=== PATIENT | male | born 1940 | race Caucasian/White ===

== ENCOUNTER 2016-06-03 15:41 | Inpatient (IN) | payer MEDICARE, MEDICAID ==
[~2016-06-03] VITALS: Ht 172.7 cm; Wt 82.7 kg
--- NOTE | 2016-06-03 16:01 | NUR ---
[facility] STAFF STATE PT IS FULL CODE & IS HIS OWN GUARDIAN. CL
--- NOTE | 2016-06-03 16:18 | NUR ---
PATIENT ATTEMPTING TO PROVIDE URINE SPECIMEN.
[2016-06-03 16:36] LABS: BASOPHILS % (AUTO) 0 % (0-2); EOSINOPHILS # (AUTO) 0.4 10^3uL; EOSINOPHILS % (AUTO) 7 % (0-4); LYMPHOCYTES # (AUTO) 1.3 X10^3; MEAN CORPUSCULAR HGB CONC 34.8 g/dL (31.0-37.0); MEAN CORPUSCULAR VOLUME 90 FL (80-100); MEAN PLATELET VOLUME 10.8 FL (6.0-9.5); MONOCYTES # (AUTO) 0.5 X10^3; MONOCYTES % (AUTO) 9 % (3-11); NEUTROPHILS # (AUTO) 3.6 X10^3; NEUTROPHILS % (AUTO) 62 % (51-67); PLATELET COUNT 231 10^3uL (150-450); WHITE BLOOD COUNT 5.79 10^3uL (4.0-11.0)
[2016-06-03 16:49] LABS: MEAN CORPUSCULAR HEMOGLOBIN 31.3 PG (26.0-34.0)
[2016-06-03 16:59] LABS: ALBUMIN 4.1 g/dL (3.4-5.0); ALKALINE PHOSPHATASE 144 U/L (38-126); ANION GAP 12.4 MEQ/L (3-15); BUN/CREATININE RATIO 34 (10-20); CALCULATED IONIZED CALCIUM 4.2 mg/dL (3.8-4.6); CREATINE KINASE 55 U/L (55-170); TOTAL PROTEIN 6.7 g/dL (6.4-8.5)
[2016-06-03 17:16] LABS: BILIRUBIN,URINE Negative (Negative); CLARITY,URINE Clear; COLOR,URINE Yellow; GLUCOSE, URINE (UA) Negative (Negative); LEUKOCYTE ESTERASE ,URINE Negative (Negative); PH,URINE 5.5 (5.0 - 8.0); UROBILINOGEN,URINE 0.2 mg/dL (0.2-1.0)
--- NOTE | 2016-06-03 17:42 | Diagnostic Imaging Report ---
INDICATION: Cough, hypoxia. COMPARISON: None available. FINDINGS: Patchy opacities in the left lower lobe are present. There are also linear opacities in both lung bases. No pleural effusion or pneumothorax. Normal heart size. Normal mediastinal contours. Atherosclerosis of the aorta. IMPRESSION: Nodular opacity in the left lung base may relate to infectious process in the appropriate setting. Recommend followup PA and lateral chest radiographs in four weeks after appropriate medical management to ensure resolution and exclude neoplastic process. Dictated by: Dictated on workstation # [id number]
[2016-06-03] MEDS ORDERED: cefTRIAXone SODIUM 1,000 MG in SODIUM CHLORIDE 50 ML IV ONE (18:00)
[2016-06-03] MEDS ORDERED: SODIUM CHLORIDE FLUSH 10 ML SYR IV PRN (18:10)
[2016-06-03] MEDS: SODIUM CHLORIDE FLUSH 3 ML SYR IV PRN ×2 (18:59→19:15)
--- NOTE | 2016-06-03 19:12 | NUR ---
Sent text to Med-Surg Charge 1 requesting they call ED for pt rpt.
[2016-06-03] MEDS ORDERED: ACETAMINOPHEN 325 MG TAB (TYLENOL) PO PRN (19:45)
[2016-06-03] MEDS ORDERED: MAGNESIUM HYDROXIDE 80MG/ML (MILK OF MAGNESIA) 30 ML UDC PO PRN (19:45)
[2016-06-03] MEDS ORDERED: POLYETHYLENE GLYCOL 17 GM (MIRALAX) PACKET PO PRN (19:45)
[2016-06-03] MEDS ORDERED: DOCUSATE SODIUM 100 MG (COLACE) CAP PO PRN (19:45)
[2016-06-03] MEDS ORDERED: MAG HYDROX/AL HYDROX/SIMETH 200-200-20/5 ML (MAG-AL PLUS) 30 ML UDC PO PRN (19:45)
[2016-06-03] MEDS ORDERED: ALBUTEROL 0.083% NEB SOLUTION 2.5 MG/3 ML VIAL INH PRN ×2 (19:45→20:55)
[2016-06-03] MEDS ORDERED: CALCIUM CARBONATE CHEWABLE 300 MG (TUMS) TABLET PO PRN (19:45)
--- NOTE | 2016-06-03 20:00 | NUR ---
Pt admitted to room 311. Brought from ER by staff and a cart. [facility] staff at his bedside.
[2016-06-03] MEDS ORDERED: SODIUM CHLORIDE 250 ML ONE (20:09)
[2016-06-03] MEDS ORDERED: AZITHROMYCIN 500 MG (ZITHROMAX) VIAL IV ONE (20:09)
[2016-06-03] MEDS: AZITHROMYCIN VIAL 500 MG in SODIUM CHLORIDE 250 ML IV SCH (20:22)
[2016-06-03] MEDS: guaiFENesin ER 600 MG (MUCINEX) TAB PO SCH (20:23)
[2016-06-03] MEDS ORDERED: DEXTROMETHORPHAN 15 MG/10 ML UDC PO PRN (20:55)
[2016-06-03] MEDS ORDERED: guaiFENesin ER 600 MG (MUCINEX) TAB PO SCH (21:00)
--- NOTE | 2016-06-03 21:03 | History and Physical (E) ---
History & Physical PCP: Mike Velazco MD CC: Dyspnea HPI Devin Lozada is a 75 year old male admitted from ED where he presented from home ([facility]) via EMS after he had been seen at [facility] for pallor and trouble breathing while lying flat. He has reportedly had cough for two weeks. No reported fever. In ED, BP was quite elevated. Afebrile. HR 60-90, RR 17-24. SpO2 low 90's on 2 L. CXR showed nodular opacity, left base, infectious vs. other etiology. Resp PCR panel was negative. WB was normal with no bandemia. Chemistry showed AlkP 144, CO2 33, and was otherwise as noted below. Pro-BNP not elevated at 277. Troponin normal. TSH normal. UA not suggestive of UTI. For clinical concern of pneumonia he was given ceftriaxone and admission was requested for further management. On arrival to unit, awake, alert, interactive, oriented. Good cognition and he can relate history. [facility] staff member is also present. States onset of illness was 2-3 weeks ago with cough. Mild at first but got worse. Coughing constantly. Interrupted his sleep. Notified his staff he wanted to see a doctor. Eventually went to [facility] but then was sent to ED. He has had coughing before but this is the longest it has lasted for a while. Cough is not productive. No fever. No chills. No rash. Minimal URI symptoms. No GI complaints. Has felt some wheezing. No chest pains. No dizziness or syncopal symptoms. [facility] staff have noticed he is more pale. PMH * Falls at home * COPD * Asthma * Arthritis * Nocturia * Mild intellectual developmental disability * [place] * Seizure disorder * BPH * Anxiety * Peripheral neuropathy * Pedal edema * GERD PSH * Ingrown toenail, right great toe ALLERGIES: Please see list at end of report. HOME MEDICATIONS: Please see list at end of report. FH Mom of natural causes at 99. Father at 85 of natural causes. 1 sister of cancer, unknown kind. But she was adoptive. Another biological sister lives in [place]. [facility] client. He is his own guardian. Single, no children. No smoking, alcohol, or drug use. Retired from [employer]. ROS CONSTITUTION: Weight has been stable. Poor sleep because of cough. HEENT: No change in vision or hearing. No sores in mouth, sore throat. CV: No chest pain, palpitations. PULM: Per HPI, exam. GI: No upset stomach, nausea, vomiting, constipation, or diarrhea. No blood in stool. : No dysuria. Nocturia at times. MS: No new muscle or joint aches and pains. NEURO: No numbness or tingling. No weakness. INTEG: No rashes, lesions, or sores. ENDO: No heat or cold intolerance. No polydipsia or polyuria. HEME/LYMPH: No easy bruising or bleeding. No swollen glands. PSYCH: No change in mood or behavior. OBJECTIVE Vital Signs Date Time Temp Pulse Resp B/P Pulse Ox O2 Delivery O2 Flow Rate FiO2 06/03/16 18:26 66 17 191/76 93 Room Air 1 06/03/16 15:42 98.9 GEN: Awake, alert, oriented, NAD at present. HEENT: EOMI, PERRL, dry oral mucosa. CV: RRR S1 S2 normal with no murmur LUNGS: Diminished with no R/R/W. Mildly prolonged expiratory phase. ABD: Soft, NT/ND with normal bowel sounds. EXTR: 1+ pedal edema. INTEG: No rash. Age related changes. Dry skin. NEURO: No focal motor neuro deficit. Laboratory Results-14 Days 06/03/16 16:20: Urine Bilirubin Negative, Urine Clarity Clear, Urine Collection Type Random voided, Urine Color Yellow, Urine Glucose (UA) Negative, Urine Ketones Negative , Urine Leukocyte Esterase Negative, Urine Nitrite Negative, Urine Protein Negative, Urine RBC (Auto) Negative, Urine Specific [place] 1.020, Urine Urobilinogen 0.2, Urine pH 5.5 06/03/16 16:25: Adenovirus (PCR) Negative, Alanine Aminotransferase (ALT/SGPT) 35, Albumin 4.1, Albumin/Globulin Ratio 1.576, Alkaline Phosphatase 144H, Anion Gap 12.4, Aspartate Amino Transf (AST/SGOT) 31, BUN/Creatinine Ratio 34H, Basophils # ( Auto) 0.0, Basophils (%) (Auto) 0, Blood Urea Nitrogen 23H, Bordetella parapertussis DNA (PCR) Negative, C-Reactive Protein 0.90, Calcium Level 9.2, Calcium/Ionized Calcium Ratio 4.2, Calculated Osmolality 277L, Carbon Dioxide Level 33H, Chlamydophila pneumoniae (PCR) Negative, Chloride Level 101, Coronavirus Type 229E (PCR) Negative, Coronavirus Type HKU1 (PCR) Negative, Coronavirus Type NL63 (PCR) Negative, Coronavirus Type OC43 (PCR) Negative, Creatine Kinase MB 1.6, Creatinine 0.67L, D-Dimer 494, Enterovirus/Rhinovirus ( PCR) Negative, Eosinophils # (Auto) 0.4, Eosinophils (%) (Auto) 7H, Estimat Glomerular Filtration Rate 140.3, Estimated GFR (Non- 116.0, Glucose Level 94#, Hematocrit 42.80, Hemoglobin 14.9, Human Metapneumovirus (PCR ) Negative, Influenza Type A (H1) (PCR) Negative, Influenza Virus Type B (PCR) Negative, Lymphocytes # (Auto) 1.3, Lymphocytes (%) (Auto) 22, Mean Corpuscular Hemoglobin 31.3, Mean Corpuscular Hemoglobin Concent 34.8, Mean Corpuscular Volume 90, Mean Platelet Volume 10.8H, Monocytes # (Auto) 0.5, Monocytes (%) ( Auto) 9, Mycoplasma pneumoniae (PCR) Negative, IH-Vhy-G-Type Natriuretic Peptide 277H, Neutrophils # (Auto) 3.6, Neutrophils (%) (Auto) 62, Parainfluenza Type 1 (PCR) Negative, Parainfluenza Type 2 (PCR) Negative, Parainfluenza Type 3 (PCR) Negative, Parainfluenza Type 4 (PCR) Negative, Phenytoin (Dilantin) Level 10.8, Platelet Count 231, Potassium Level 4.1, Prothromb Time International Ratio 1.0, Prothrombin Time 11.4, Red Blood Count 4.76, Red Cell Distribution Width 12.8, Respiratory Syncytial Virus (PCR) Negative, Sodium Level 142, Thyroid Stimulating Hormone (TSH) 0.71, Total Bilirubin 0.5, Total Creatine Kinase 55, Total Protein 6.7, Troponin I < 0.012, White Blood Count 5.79 06/03/16 18:25: Lactic Acid Level 0.9 MICRO 06/03 Resp PCR Panel Negative 06/03 Blood culture PENDING (not drawn before first abx.) 06/03 Sputum culture PENDING SAMPLE IMAGING 06/03/16 CHEST PA/LAT (2 VIEW)* INDICATION: Cough, hypoxia. COMPARISON: None available. FINDINGS: Patchy opacities in the left lower lobe are present. There are also linear opacities in both lung bases. No pleural effusion or pneumothorax. Normal heart size. Normal mediastinal contours. Atherosclerosis of the aorta. IMPRESSION: Nodular opacity in the left lung base may relate to infectious process in the appropriate setting. Recommend followup PA and lateral chest radiographs in four weeks after appropriate medical management to ensure resolution and exclude neoplastic process. ASSESSMENT Devin Lozada is a 75 year old male admitted from ED 06/03 with acute respiratory distress attributed to community acquired pneumonia, viral vs. bacterial. He has several chronic problems. He did not meet sepsis criteria on PLAN * Acute Respiratory Distress: Oxygen protocol. Acapella. Albuterol PRN * Community Acquired Pneumonia: Blood culture pending. Sputum pending sample. Guaifenesin, ceftriaxone, azithromycin. * COPD/Asthma with Acute Exacerbation: Duoneb scheduled, albuterol PRN. Guaifenesin. Prednisone burst. * Cough: dextromethorphan * Dehydration: NS bolus. Encourage PO fluid intake. I&O. * F/E/N: General diet. Peripheral IV. IVF as above. * Prophylaxis: SCDs * Code Status: Full * Dispo: Inpatient expecting 3 day stay. CHRONIC ISSUES Home medications to be reviewed. Some polypharmacy noted on home medication list. * Seasonal allergies: resume fexofenadine after discharge. * Arthritis: Celecoxib, glucosamine/chondroitin * Seizure Disorder: Clonazepam * Anxiety? Clonazepam, phenytoin, olanzapine. * BPH: Tamsulosin * Pedal Edema DAIANA hose. * Peripheral neuropathy: Gabapentin Allergies/Home Medications Allergies: Coded Allergies: Penicillins (Verified Allergy, Unknown, 06/03/16) Copies to: End of Report . ELIZABETH FELDER MD Jun 03, 2016 19:53
[2016-06-03] MEDS: ALBUTEROL/IPRATROPIUM 3MG-0.5MG/3ML (DUONEB) NEB VIAL INH SCH (22:00)
[2016-06-03] MEDS: PHENYTOIN ER 100 MG (DILANTIN) CAPSULE PO SCH (22:17)
[2016-06-03] MEDS: GABAPENTIN 100 MG (NEURONTIN) CAP PO SCH (22:17)
[2016-06-03] MEDS: clonazePAM 0.5 MG (KlonoPIN) TAB PO SCH (22:17)
[2016-06-03] MEDS: predniSONE 20 MG (DELTASONE) TABLET PO SCH (22:17)
[2016-06-03] MEDS: CELECOXIB 200 MG PO SCH (22:17)
[2016-06-03] MEDS: OLANZapine 5 MG (ZyPREXA) TAB PO SCH (22:17)
[2016-06-03] MEDS: GLUCOSAMINE/CHONDROITIN 500MG-400MG CAPSULE PO SCH (22:18)
[2016-06-04] VITALS: BP 152/78
[2016-06-04 06:00] LABS: MEAN CORPUSCULAR HGB CONC 34.8 g/dL (31.0-37.0); MEAN CORPUSCULAR VOLUME 90 FL (80-100); MEAN PLATELET VOLUME 11.3 FL (6.0-9.5); PLATELET COUNT 219 10^3uL (150-450); WHITE BLOOD COUNT 6.54 10^3uL (4.0-11.0)
[2016-06-04 06:22] LABS: ALBUMIN 3.9 g/dL (3.4-5.0); ANION GAP 13.8 MEQ/L (3-15); PHOSPHORUS 3.8 mg/dL (2.4-4.9)
[2016-06-04 06:24] LABS: MEAN CORPUSCULAR HEMOGLOBIN 31.3 PG (26.0-34.0)
[2016-06-04 06:26] LABS: BAND NEUTROPHILS % 1 % (0-6); EOSINOPHILS % 1 % (0-4); LYMPHOCYTES # 0.5 #; MONOCYTES # 0.1 #; MONOCYTES % 1 % (3-11); RBC MORPH NORMAL (NORMAL); SEGMENTED NEUTROPHILS % 90 % (51-67); TOTAL CELLS COUNTED 100
[2016-06-04] MEDS: PANTOPRAZOLE 40 MG (PROTONIX) TAB PO SCH (06:57)
[2016-06-04 08:03] VITALS: BP 156/88
[2016-06-04] MEDS: GLUCOSAMINE/CHONDROITIN 500MG-400MG CAPSULE PO SCH ×2 (09:00→20:51)
--- NOTE | 2016-06-04 09:00 | NUR ---
Pt sitting up in bed. Skin warm, dry, intact. Resprs nonlabored, even on 2L NC. Pt denies pain or SOA at this time. Call light within reach. Denies needs.
[2016-06-04] MEDS ORDERED: FLUT9.9S NS (09:29)
[2016-06-04] MEDS ORDERED: CLON0.5T3 PO (09:29)
[2016-06-04] MEDS ORDERED: GLUC-113 PO (09:29)
[2016-06-04] MEDS ORDERED: TAMS-8 PO (09:29)
[2016-06-04] MEDS ORDERED: PHN100C PO (09:29)
[2016-06-04] MEDS ORDERED: OMEP20TA PO (09:29)
[2016-06-04] MEDS ORDERED: KCL20TCR PO (09:29)
[2016-06-04] MEDS ORDERED: HYDR-3702 PO (09:29)
[2016-06-04] MEDS ORDERED: MULT1TAB63 PO (09:29)
[2016-06-04] MEDS ORDERED: FURO20TA4 PO (09:29)
[2016-06-04] MEDS ORDERED: CELE-63 PO (09:29)
[2016-06-04] MEDS ORDERED: GBPN100C PO (09:29)
[2016-06-04] MEDS ORDERED: SERT50TA9 PO (09:29)
[2016-06-04] MEDS ORDERED: OLN5T PO (09:29)
[2016-06-04] MEDS ORDERED: NAPR375T71 PO (09:29)
[2016-06-04] MEDS ORDERED: FNST5T PO (09:29)
[2016-06-04] MEDS ORDERED: FEXO-95 PO (09:29)
[2016-06-04] MEDS ORDERED: [UNRECOGNIZED DRUG - CODE] PO (09:29)
[2016-06-04] MEDS ORDERED: DICL100G13 TOP (09:29)
[2016-06-04] MEDS ORDERED: ACET325T38 PO (09:29)
[2016-06-04] MEDS: clonazePAM 0.5 MG (KlonoPIN) TAB PO SCH ×2 (09:39→20:52)
[2016-06-04] MEDS: guaiFENesin ER 600 MG (MUCINEX) TAB PO SCH ×2 (09:39→20:52)
[2016-06-04] MEDS: CELECOXIB 200 MG PO SCH ×2 (09:40→20:52)
[2016-06-04] MEDS: predniSONE 20 MG (DELTASONE) TABLET PO SCH (09:40)
[2016-06-04] MEDS: PHENYTOIN ER 100 MG (DILANTIN) CAPSULE PO SCH ×2 (09:40→20:52)
[2016-06-04] MEDS: ALBUTEROL/IPRATROPIUM 3MG-0.5MG/3ML (DUONEB) NEB VIAL INH SCH ×4 (09:48→21:43)
--- NOTE | 2016-06-04 11:10 | NUR ---
Medication reconciliation: Completed [facility] medical [facility].
--- NOTE | 2016-06-04 13:44 | Progress Note-A/P (E) ---
Progress Note Subjective: Patient reports he is feeling well and is asking about going home. He states he is not typically on oxygen at home, Discussed the need to wean him from oxygen prior to discharge. Patient verbalized understanding of the discharge plan. Questions answered. Objective: Current Medications Albuterol Sulfate 2.5 mg Q4H PRN INH Ceftriaxone Q24H IV Azithromycin Q24H IV Guaifenesin 1,200 mg BID PO Acetaminophen 650 mg Q6H PRN PO Calcium Carbonate 300 mg Q8H PRN PO Al Hydrox/Mg Hydrox/Simethicone 30 ml Q6H PRN PO Magnesium Hydroxide 30 ml DAILY PRN PO Polyethylene Glycol 17 gm DAILY PRN PO Docusate 100 mg BID PRN PO Celecoxib 200 mg BID PO Clonazepam 0.5 mg BID PO Gabapentin 100 mg HS PO Glucosamine/ Chondroitin 1 each BID PO Pantoprazole 40 mg DAILY@0700 PO Phenytoin 100 mg Q12HR PO Olanzapine 5 mg HS PO Albuterol/ Ipratropium 3 ml RTQID INH Dextromethorphan 15 mg Q4H PRN PO Prednisone 40 mg DAILY@0800 PO Vital Signs Date Time Temp Pulse Resp B/P Pulse Ox O2 Delivery O2 Flow Rate FiO2 06/04/16 08:03 97.0 78 18 156/88 94 Nasal cannula 06/03/16 19:43 1 I & O Past 24 hrs 06/04/16 07:00 Intake Total 1450 ml Output Total 850 ml Balance 600 ml Intake Oral 250 ml IV Total 1200 ml Output Urine Total 850 ml Physical Exam General--Awake and alert. No distress. Pale. HEENT--Normocephalic. MMM in oral cavity. Nasal cannula in place. Lungs--Wheezing noted on the left side. Nonlabored respirations. Heart--RRR. No murmurs. Abdomen--Normal bowel sounds. Soft. Nondistended. Nontender. Extremities--No edema. Past 24 hour Lab Results 06/03/16 16:25 06/04/16 05:34 Laboratory Results Past 24 Hrs 06/03/16 16:20: Urine Bilirubin Negative, Urine Clarity Clear, Urine Collection Type Random voided, Urine Color Yellow, Urine Glucose (UA) Negative, Urine Ketones Negative , Urine Leukocyte Esterase Negative, Urine Nitrite Negative, Urine Protein Negative, Urine RBC (Auto) Negative, Urine Specific [place] 1.020, Urine Urobilinogen 0.2, Urine pH 5.5 06/03/16 16:25: Adenovirus (PCR) Negative, Alanine Aminotransferase (ALT/SGPT) 35, Albumin 4.1, Albumin/Globulin Ratio 1.576, Alkaline Phosphatase 144, Anion Gap 12.4, Aspartate Amino Transf (AST/SGOT) 31, BUN/Creatinine Ratio 34, Basophils # (Auto ) 0.0, Basophils (%) (Auto) 0, Blood Urea Nitrogen 23, Bordetella parapertussis DNA (PCR) Negative, C-Reactive Protein 0.90, Calcium Level 9.2, Calcium/Ionized Calcium Ratio 4.2, Calculated Osmolality 277, Carbon Dioxide Level 33, Chlamydophila pneumoniae (PCR) Negative, Chloride Level 101, Coronavirus Type 229E (PCR) Negative, Coronavirus Type HKU1 (PCR) Negative, Coronavirus Type NL63 (PCR) Negative, Coronavirus Type OC43 (PCR) Negative, Creatine Kinase MB 1.6, Creatinine 0.67, D-Dimer 494, Enterovirus/Rhinovirus (PCR) Negative, Eosinophils # (Auto) 0.4, Eosinophils (%) (Auto) 7, Estimat Glomerular Filtration Rate 140.3, Estimated GFR (Non- 116.0, Glucose Level 94, Hematocrit 42.80, Hemoglobin 14.9, Human Metapneumovirus (PCR) Negative, Influenza Type A (H1) (PCR) Negative, Influenza Virus Type B (PCR) Negative, Lymphocytes # (Auto) 1.3, Lymphocytes (%) (Auto) 22, Mean Corpuscular Hemoglobin 31.3, Mean Corpuscular Hemoglobin Concent 34.8, Mean Corpuscular Volume 90, Mean Platelet Volume 10.8, Monocytes # (Auto) 0.5, Monocytes (%) ( Auto) 9, Mycoplasma pneumoniae (PCR) Negative, IX-Mgy-N-Type Natriuretic Peptide 277, Neutrophils # (Auto) 3.6, Neutrophils (%) (Auto) 62, Parainfluenza Type 1 (PCR) Negative, Parainfluenza Type 2 (PCR) Negative, Parainfluenza Type 3 (PCR) Negative, Parainfluenza Type 4 (PCR) Negative, Phenytoin (Dilantin) Level 10.8, Platelet Count 231, Potassium Level 4.1, Prothromb Time International Ratio 1.0, Prothrombin Time 11.4, Red Blood Count 4.76, Red Cell Distribution Width 12.8, Respiratory Syncytial Virus (PCR) Negative, Sodium Level 142, Thyroid Stimulating Hormone (TSH) 0.71, Total Bilirubin 0.5, Total Creatine Kinase 55, Total Protein 6.7, Troponin I < 0.012, White Blood Count 5.79 06/03/16 18:25: Lactic Acid Level 0.9 06/04/16 05:34: Albumin 3.9, Anion Gap 13.8, Basophils # (Auto) , Basophils (%) (Auto) , Blood Urea Nitrogen 25, Calcium Level 9.0, Carbon Dioxide Level 29, Chloride Level 105 , Creatinine 0.69, Eosinophils # (Auto) , Eosinophils (%) (Auto) , Estimat Glomerular Filtration Rate 135.6, Estimated GFR (Non- 112.1, Glucose Level 125, Hematocrit 40.80, Hemoglobin 14.2, Lymphocytes # (Auto) , Lymphocytes (%) (Auto) , Mean Corpuscular Hemoglobin 31.3, Mean Corpuscular Hemoglobin Concent 34.8, Mean Corpuscular Volume 90, Mean Platelet Volume 11.3, Monocytes # (Auto) , Monocytes (%) (Auto) , Neutrophils # (Auto) , Neutrophils ( %) (Auto) , Platelet Count 219, Potassium Level 4.1, Red Blood Count 4.53, Red Cell Distribution Width 12.7, Sodium Level 144, White Blood Count 6.54, Absolute Band Neutrophils 0.1, Band Neutrophils % 1, Basophils # (Manual) 0.0, Basophils % (Manual) 0, Blood Morphology Comment Normal, Differential Total Cells Counted 100, Eosinophils # 0.1, Eosinophils % (Manual) 1, Lymphocytes # 0.5, Lymphocytes % (Manual) 7, Monocytes # 0.1, Monocytes % (Manual) 1, Neutrophils # 5.9, Phosphorus Level 3.8, Segmented Neutrophils % 90 Imaging Results 12.30.16 CXR IMPRESSION: Nodular opacity in the left lung base may relate to infectious process in the appropriate setting. Recommend followup PA and lateral chest radiographs in four weeks after appropriate medical management to ensure resolution and exclude neoplastic process. Assessment/Plan Acute respiratory distress Continue oxygen per protocol, acapella, and treatment noted below. CAP Blood culture pending. Sputum culture pending. Continue guaifenesin, ceftriaxone, azithromycin, and albuterol (prn). COPD/asthma exacerbation Continue prn albuterol, scheduled duoneb prednisone burst and guaifenesin. Seasonal allergies Resume fexofenadine on discharge. Arthritis Continue home celecoxib and glucosamine/chondroitin. Seizure disorder Continue phenytoin and clonazepam per home dose. Anxiety Clonazepam and olanzapine per home dose. BPH Continue home tamsulosin. Pedal edema Continue DAIANA hose. Peripheral neuropathy Continue home gabapentin. FEN General diet as tolerated. Electrolytes normal at this time. NS bolus provided on admission. DVT proph SCD's. Code status Full code. Dispo Inpatient for above issues. Continue to wean oxygen. Patient will return to [facility]. KARLOS GARNER MD Jun 04, 2016 13:43
[2016-06-04 15:24] VITALS: BP 110/64
[2016-06-04] MEDS ORDERED: SODIUM CHLORIDE 100 ML ONE (17:54)
[2016-06-04] MEDS: cefTRIAXone SODIUM 1,000 MG in SODIUM CHLORIDE 50 ML IV SCH (17:59)
[2016-06-04] MEDS: AZITHROMYCIN VIAL 500 MG in SODIUM CHLORIDE 250 ML IV SCH ×2 (18:46→18:59)
--- NOTE | 2016-06-04 19:36 | NUR ---
Pt sitting up in chair. Skin warm, dry, intact. Resprs nonlabored, even on 2L NC. Pt denies pain or SOA at this time. Call light within reach. Denies needs.
[2016-06-04] MEDS: OLANZapine 5 MG (ZyPREXA) TAB PO SCH (20:52)
[2016-06-04] MEDS: GABAPENTIN 100 MG (NEURONTIN) CAP PO SCH (20:52)
[2016-06-04 23:37] VITALS: BP 131/72
[2016-06-05] MEDS: PANTOPRAZOLE 40 MG (PROTONIX) TAB PO SCH (06:22)
--- NOTE | 2016-06-05 06:52 | NUR ---
Patient rests in bed throughout night without needs. Up to bathroom with one assist. No needs at this time.
[2016-06-05] MEDS: ALBUTEROL/IPRATROPIUM 3MG-0.5MG/3ML (DUONEB) NEB VIAL INH SCH ×4 (07:59→19:25)
[2016-06-05 08:25] VITALS: BP 151/87
--- NOTE | 2016-06-05 08:41 | Progress Note-A/P (E) ---
Progress Note Subjective: Patient reports feeling well. Denies n/v/d. No new concerns. He states he would like to go home. Discussed care and discharge plans. Questions answered. Objective: Current Medications Albuterol Sulfate 2.5 mg Q4H PRN INH Ceftriaxone Q24H IV Azithromycin Q24H IV Guaifenesin 1,200 mg BID PO Acetaminophen 650 mg Q6H PRN PO Calcium Carbonate 300 mg Q8H PRN PO Al Hydrox/Mg Hydrox/Simethicone 30 ml Q6H PRN PO Magnesium Hydroxide 30 ml DAILY PRN PO Polyethylene Glycol 17 gm DAILY PRN PO Docusate 100 mg BID PRN PO Celecoxib 200 mg BID PO Clonazepam 0.5 mg BID PO Gabapentin 100 mg HS PO Glucosamine/ Chondroitin 1 each BID PO Pantoprazole 40 mg DAILY@0700 PO Phenytoin 100 mg Q12HR PO Olanzapine 5 mg HS PO Albuterol/ Ipratropium 3 ml RTQID INH Dextromethorphan 15 mg Q4H PRN PO Prednisone 40 mg DAILY@0800 PO Vital Signs Date Time Temp Pulse Resp B/P Pulse Ox O2 Delivery O2 Flow Rate FiO2 06/05/16 08:25 97.4 97 18 151/87 90 Nasal cannula 06/03/16 19:43 1 I & O Past 24 hrs 06/05/16 07:00 Intake Total 2791 ml Output Total 2050 ml Balance 741 ml Intake Oral 2791 ml Output Urine Total 2050 ml Physical Exam General--Awake and alert. No distress. Pale. HEENT--Normocephalic. MMM in oral cavity. Nasal cannula in place. Lungs--CTA B. Nonlabored respirations. Heart--RRR. No murmurs. Abdomen--Bowel sounds present. Soft. Nondistended. Nontender. Extremities--Mild edema to lower extremities. Past 24 hour Lab Results Microbiology 06/03/16 Blood Culture - Preliminary, Resulted No Growth in 24 hours x 2 Imaging Results 06.03.16 CXR IMPRESSION: Nodular opacity in the left lung base may relate to infectious process in the appropriate setting. Recommend followup PA and lateral chest radiographs in four weeks after appropriate medical management to ensure resolution and exclude neoplastic process. Assessment/Plan Acute hypoxic respiratory failure Improving. Continue to wean oxygen per protocol, acapella, and treatment noted below. CAP Blood culture pending. Sputum culture pending. Continue guaifenesin, ceftriaxone, azithromycin, and albuterol (prn). COPD/asthma exacerbation Continue prn albuterol, scheduled duoneb prednisone burst and guaifenesin. Seasonal allergies Resume fexofenadine on discharge. Arthritis Continue home celecoxib and glucosamine/chondroitin. Seizure disorder Continue phenytoin and clonazepam per home dose. Anxiety Sertraline, clonazepam and olanzapine per home dose. BPH Continue home tamsulosin. Patient is also on finasteride at home, however not administering her, questioning if patient needs this. Pedal edema Continue DAIANA hose. Peripheral neuropathy Continue home gabapentin. FEN General diet as tolerated. Electrolytes normal at this time. NS bolus provided on admission. DVT proph SCD's. Code status Full code. Dispo Inpatient for above issues. Continue to wean oxygen. Patient will return to [facility] when back on room air. KARLOS GARNER MD Jun 05, 2016 08:41
[2016-06-05] MEDS: guaiFENesin ER 600 MG (MUCINEX) TAB PO SCH ×2 (09:16→21:07)
[2016-06-05] MEDS: predniSONE 20 MG (DELTASONE) TABLET PO SCH (09:16)
[2016-06-05] MEDS: PHENYTOIN ER 100 MG (DILANTIN) CAPSULE PO SCH ×2 (09:16→21:07)
[2016-06-05] MEDS: clonazePAM 0.5 MG (KlonoPIN) TAB PO SCH ×2 (09:16→21:07)
[2016-06-05] MEDS: CELECOXIB 200 MG PO SCH ×2 (09:16→21:07)
[2016-06-05] MEDS: GLUCOSAMINE/CHONDROITIN 500MG-400MG CAPSULE PO SCH ×2 (09:16→21:07)
[2016-06-05] MEDS ORDERED: SODIUM CHLORIDE FLUSH 10 ML SYR IV SCH (11:30)
[2016-06-05 16:19] VITALS: BP 150/74
[2016-06-05] MEDS: cefTRIAXone SODIUM 1,000 MG in SODIUM CHLORIDE 50 ML IV SCH (16:53)
[2016-06-05] MEDS ORDERED: SODIUM CHLORIDE 100 ML ONE (17:00)
[2016-06-05] MEDS: AZITHROMYCIN VIAL 500 MG in SODIUM CHLORIDE 250 ML IV SCH (17:38)
[2016-06-05] MEDS ORDERED: SERTRALINE 50 MG (ZOLOFT) TABLET PO SCH (18:05)
--- NOTE | 2016-06-05 18:50 | NUR ---
Restarted the patient's IV site in the left hand. The site that was in the right forearm was DC'd due to redness and pain.
--- NOTE | 2016-06-05 19:15 | NUR ---
Report received, care assumed. Pt sitting up in chair watching television. Denies needs.
--- NOTE | 2016-06-05 19:44 | NUR ---
The patient has been weaned to 1 liter NC. He has denied pain throughout the shift. Sat. remains in the 90's. No increased SOA since O2 was weaned. Able to take meds. whole without difficulty.
[2016-06-05] MEDS ORDERED: TAMSULOSIN 0.4 MG (FLOMAX) CAP PO SCH (21:00)
[2016-06-05] MEDS: OLANZapine 5 MG (ZyPREXA) TAB PO SCH (21:07)
[2016-06-05] MEDS: GABAPENTIN 100 MG (NEURONTIN) CAP PO SCH (21:08)
--- NOTE | 2016-06-05 21:10 | NUR ---
Pt took evening meds without difficulty. Continues to sit up watching television. Pt very congenial and cooperative with staff. Denies discomfort. Denies other needs. Call light in reach.
[2016-06-05 23:40] VITALS: BP 150/61
--- NOTE | 2016-06-06 06:15 | NUR ---
Pt took AM med without difficulty. Reports sleeping well tonight. Pt sitting up in chair watching television. Denies discomfort. No other needs at this time. Call light in reach.
[2016-06-06] MEDS: PANTOPRAZOLE 40 MG (PROTONIX) TAB PO SCH (06:16)
[2016-06-06] MEDS: ALBUTEROL/IPRATROPIUM 3MG-0.5MG/3ML (DUONEB) NEB VIAL INH SCH ×3 (07:39→15:24)
[2016-06-06] MEDS: PHENYTOIN ER 100 MG (DILANTIN) CAPSULE PO SCH (08:53)
[2016-06-06] MEDS: GLUCOSAMINE/CHONDROITIN 500MG-400MG CAPSULE PO SCH (08:54)
[2016-06-06] MEDS: guaiFENesin ER 600 MG (MUCINEX) TAB PO SCH (08:54)
[2016-06-06] MEDS: clonazePAM 0.5 MG (KlonoPIN) TAB PO SCH (08:55)
[2016-06-06] MEDS: predniSONE 20 MG (DELTASONE) TABLET PO SCH (08:55)
[2016-06-06] MEDS: CELECOXIB 200 MG PO SCH (08:55)
[2016-06-06 09:19] VITALS: BP 139/75
--- NOTE | 2016-06-06 09:58 | NUR ---
NUTRITION ASSESSMENT Level 1 Patient: Devin Lozada Age/Sex: 75/M Date Screened: 06-06-16 Weight: 181.9#/82.7 kg Height: 68 inches Primary Diagnosis: acute respiratory distress, pneumonia Diet Order: regular Relevant labs: glucose 125 Food allergies: N Nutrition Assessment Criteria Age over 80: N Body Mass Index (BMI) under 19: N Admission Screening Indicates Risk? N Moderate/High Risk Diagnosis: 3 points TPN or PPN: N NPO or clear liquid diet: N Serum Glucose <70 or >180: N Hgb A1c >6.7: N/A Total: 3 points Risk Screen: __ Patient at low nutritional risk based on available data; reevaluate in 5-7 days _X_ Patient at moderate nutritional risk based on available data; reevaluate in 3-5 days __ Patient at high nutritional risk; complete Nutrition Assessment within 48 hours of admission. Comments: Weight stable per pt. report, eating well at 75-100%. No GI concerns. Will reassess as documented above.
[2016-06-06] MEDS ORDERED: PRD20T PO (14:14)
[2016-06-06] MEDS ORDERED: CEFD300C PO (14:14)
[2016-06-06] MEDS ORDERED: GFN600TCR PO (14:14)
[2016-06-06] MEDS ORDERED: FURO20TA4 PO (14:14)
--- NOTE | 2016-06-06 14:15 | Discharge Instructions (E) ---
Discharge Instructions Instructions * You were evaluated and treated for pneumonia. You will complete antibiotic therapy after discharge with cefdinir. Take all antibiotic as prescribed. Do not skip doses even if you feel better. * You had an exacerbation of your asthma with this illness. Continue to take prednisone as prescribed for one more day after discharge. * Some of your home medications are duplicates. Minor changes have been made to your discharge medication list. Review these changes closely and discuss with your primary care doctor if you have questions or concerns. Activity Instructions As tolerated. Doctor's Appointment Follow-up with your primary care doctor in 3-5 days. Discharge Diet: Regular ELIZABETH FELDER MD Jun 06, 2016 14:09
[2016-06-06] MEDS ORDERED: ALBU8CC IH (14:18)
--- NOTE | 2016-06-06 15:35 | NUR ---
DCd peripheral Iv to left back of hand without difficulties. Report called to Debi at [facility].
--- NOTE | 2016-06-06 16:45 | NUR ---
Pt left unit under his own power with assist of 4 wheel walker and standby assist of private household worker. Patient was A&O.
[2016-06-06 17:23] VITALS: BP 127/56
--- NOTE | 2016-06-07 01:33 | Discharge Summary (E) ---
Discharge Summary (E) Admit Date/Time Jun 03, 2016 at 18:56 Discharge Date/Time Jun 06, 2016 at 16:45 Admitting Provider Eleuterio Loomis MD Primary Care Provider Mike Velazco MD Attending Provider Eleuterio Loomis MD Consulting Provider History and Present Illness See History and Physical for complete details. Devin Lozada is a 75 year old male admitted from ED 06/03 with acute respiratory distress attributed to community acquired pneumonia, viral vs. bacterial. He has several chronic problems. He did not meet sepsis criteria on admit. He improved with therapies as outlined and was discharged home in improved, stable condition. Hospital Course and Treatment * Acute Respiratory Distress: Resolved. Oxygen protocol. Acapella. Albuterol PRN. At discharge, weaned to room air. * Community Acquired Pneumonia: Blood culture negative. No sputum sample for culture. Gave guaifenesin, ceftriaxone, azithromycin. At discharge, cefdinir. * COPD/Asthma with Acute Exacerbation: Duoneb scheduled, albuterol PRN. Guaifenesin. Prednisone burst. Complete prednisone after discharge. * Cough: dextromethorphan * Dehydration: NS bolus. Encourage PO fluid intake. I&O. * F/E/N: General diet. Peripheral IV. IVF as above. * Prophylaxis: SCDs * Code Status: Full * Dispo: Inpatient. Discharged home in improved, stable condition. CHRONIC ISSUES Some polypharmacy noted on home medication list so some changes (minor) were made at discharge. * Seasonal allergies: resume fexofenadine after discharge. * Arthritis: Celecoxib, glucosamine/chondroitin. Stopped naproxen. * Seizure Disorder: Phenytoin * Anxiety: Clonazepam, * Olanzapine: Uncertain indication * BPH: Tamsulosin * Pedal Edema: DAIANA hose, furosemide resumed at discharge. * Peripheral neuropathy: Gabapentin Discharge Physicial Exam General Vital Signs Date Time Temp Pulse Resp B/P Pulse Ox O2 Delivery O2 Flow Rate FiO2 06/06/16 09:19 97.0 0 18 139/75 96 Room air 2.00 86 Discharge weight: 82 kg 06/04/2016 GEN: Awake, alert, oriented, NAD at present. Breathing easily on room air. HEENT: EOMI, PERRL, moist oral mucosa. CV: RRR S1 S2 normal with no murmur LUNGS: Good air movement. No R/R/W. ABD: Soft, NT/ND with normal bowel sounds. EXTR: 1+ pedal edema. INTEG: No rash. Age related changes. Dry skin. NEURO: No focal motor neuro deficit. Laboratory/Radiology Data Laboratory Results-14 Days 06/03/16 16:20: Urine Bilirubin Negative, Urine Clarity Clear, Urine Collection Type Random voided, Urine Color Yellow, Urine Glucose (UA) Negative, Urine Ketones Negative , Urine Leukocyte Esterase Negative, Urine Nitrite Negative, Urine Protein Negative, Urine RBC (Auto) Negative, Urine Specific [place] 1.020, Urine Urobilinogen 0.2, Urine pH 5.5 06/03/16 16:25: Adenovirus (PCR) Negative, Alanine Aminotransferase (ALT/SGPT) 35, Albumin 4.1, Albumin/Globulin Ratio 1.576, Alkaline Phosphatase 144H, Anion Gap 12.4, Aspartate Amino Transf (AST/SGOT) 31, BUN/Creatinine Ratio 34H, Basophils # ( Auto) 0.0, Basophils (%) (Auto) 0, Blood Urea Nitrogen 23H, Bordetella parapertussis DNA (PCR) Negative, C-Reactive Protein 0.90, Calcium Level 9.2, Calcium/Ionized Calcium Ratio 4.2, Calculated Osmolality 277L, Carbon Dioxide Level 33H, Chlamydophila pneumoniae (PCR) Negative, Chloride Level 101, Coronavirus Type 229E (PCR) Negative, Coronavirus Type HKU1 (PCR) Negative, Coronavirus Type NL63 (PCR) Negative, Coronavirus Type OC43 (PCR) Negative, Creatine Kinase MB 1.6, Creatinine 0.67L, D-Dimer 494, Enterovirus/Rhinovirus ( PCR) Negative, Eosinophils # (Auto) 0.4, Eosinophils (%) (Auto) 7H, Estimat Glomerular Filtration Rate 140.3, Estimated GFR (Non- 116.0, Glucose Level 94#, Hematocrit 42.80, Hemoglobin 14.9, Human Metapneumovirus (PCR ) Negative, Influenza Type A (H1) (PCR) Negative, Influenza Virus Type B (PCR) Negative, Lymphocytes # (Auto) 1.3, Lymphocytes (%) (Auto) 22, Mean Corpuscular Hemoglobin 31.3, Mean Corpuscular Hemoglobin Concent 34.8, Mean Corpuscular Volume 90, Mean Platelet Volume 10.8H, Monocytes # (Auto) 0.5, Monocytes (%) ( Auto) 9, Mycoplasma pneumoniae (PCR) Negative, BW-Kqd-F-Type Natriuretic Peptide 277H, Neutrophils # (Auto) 3.6, Neutrophils (%) (Auto) 62, Parainfluenza Type 1 (PCR) Negative, Parainfluenza Type 2 (PCR) Negative, Parainfluenza Type 3 (PCR) Negative, Parainfluenza Type 4 (PCR) Negative, Phenytoin (Dilantin) Level 10.8, Platelet Count 231, Potassium Level 4.1, Prothromb Time International Ratio 1.0, Prothrombin Time 11.4, Red Blood Count 4.76, Red Cell Distribution Width 12.8, Respiratory Syncytial Virus (PCR) Negative, Sodium Level 142, Thyroid Stimulating Hormone (TSH) 0.71, Total Bilirubin 0.5, Total Creatine Kinase 55, Total Protein 6.7, Troponin I < 0.012, White Blood Count 5.79 06/03/16 18:25: Lactic Acid Level 0.9 06/04/16 05:34: Albumin 3.9, Anion Gap 13.8, Basophils # (Auto) , Basophils (%) (Auto) , Blood Urea Nitrogen 25H, Calcium Level 9.0, Carbon Dioxide Level 29, Chloride Level 105, Creatinine 0.69L, Eosinophils # (Auto) , Eosinophils (%) (Auto) , Estimat Glomerular Filtration Rate 135.6, Estimated GFR (Non- 112.1, Glucose Level 125#H, Hematocrit 40.80, Hemoglobin 14.2, Lymphocytes # (Auto) , Lymphocytes (%) (Auto) , Mean Corpuscular Hemoglobin 31.3, Mean Corpuscular Hemoglobin Concent 34.8, Mean Corpuscular Volume 90, Mean Platelet Volume 11.3H , Monocytes # (Auto) , Monocytes (%) (Auto) , Neutrophils # (Auto) , Neutrophils (%) (Auto) , Platelet Count 219, Potassium Level 4.1, Red Blood Count 4.53, Red Cell Distribution Width 12.7, Sodium Level 144, White Blood Count 6.54, Absolute Band Neutrophils 0.1, Band Neutrophils % 1, Basophils # ( Manual) 0.0, Basophils % (Manual) 0, Blood Morphology Comment Normal, Differential Total Cells Counted 100, Eosinophils # 0.1, Eosinophils % (Manual) 1, Lymphocytes # 0.5, Lymphocytes % (Manual) 7L, Monocytes # 0.1, Monocytes % ( Manual) 1L, Neutrophils # 5.9, Phosphorus Level 3.8, Segmented Neutrophils % 90H MICRO 06/03 Resp PCR Panel Negative 06/03 Blood culture Negative to date (not drawn before first abx.) IMAGING 06/03/16 CHEST PA/LAT (2 VIEW)* INDICATION: Cough, hypoxia. COMPARISON: None available. FINDINGS: Patchy opacities in the left lower lobe are present. There are also linear opacities in both lung bases. No pleural effusion or pneumothorax. Normal heart size. Normal mediastinal contours. Atherosclerosis of the aorta. IMPRESSION: Nodular opacity in the left lung base may relate to infectious process in the appropriate setting. Recommend followup PA and lateral chest radiographs in four weeks after appropriate medical management to ensure resolution and exclude neoplastic process. Discharge Disposition Discharged home in improved, stable condition. Instructions * You were evaluated and treated for pneumonia. You will complete antibiotic therapy after discharge with cefdinir. Take all antibiotic as prescribed. Do not skip doses even if you feel better. * You had an exacerbation of your asthma with this illness. Continue to take prednisone as prescribed for one more day after discharge. * Some of your home medications are duplicates. Minor changes have been made to your discharge medication list. Review these changes closely and discuss with your primary care doctor if you have questions or concerns. Activity Instructions As tolerated. Appointments Follow-up with your primary care doctor in 3-5 days. Discharge Diet: Regular Discharge Medications New Medications: Albuterol Sulfate (Ventolin HFA) 90 Mcg/1 Puff Hfa.aer.ad 2 PUFF IH Q4H PRN DYSPNEA #1 Ref 0 INHALER Cefdinir (Cefdinir) 300 Mg Capsule 300 MG PO BID Infection #8 Ref 0 CAP Guaifenesin (Mucinex) 600 Mg Tab 1200 MG PO BID Stop after 5 more days. #10 Ref 0 TAB Prednisone (Deltasone) 20 Mg Tab 40 MG PO DAILY@0800 #2 Ref 0 TAB Changed Medications: Furosemide (Furosemide) 20 Mg Tablet 20 MG PO DAILY #0 Ref 0 TAB (Changed from: 10 MG; Refills: ) Continued Medications: Acetaminophen (Tylenol) 325 Mg Tablet 325-650 MG PO Q6H PRN MILD PAIN Ref 0 TAB Celecoxib (Celecoxib) 200 Mg Capsule 200 MG PO BID CAP Clonazepam (Clonazepam) 0.5 Mg Tablet 0.5 MG PO BID TAB Diclofenac Sodium (Voltaren 1% Gel) 100 Gm Gel 4 GM TOP QID TUBE Ferrous Sulfate (Feosol) 325 Mg Tablet 325 MG PO DAILY TAB Fexofenadine HCl (Fexofenadine HCl) 180 Mg Tablet 180 MG PO DAILY Allergies TAB Finasteride (Finasteride) 5 Mg Tablet 5 MG PO DAILY TAB Fluticasone Propionate (Flonase Allergy Relief) 9.9 Ml [place].susp 2 SPRAY NS DAILY Gabapentin (Gabapentin) 100 Mg Capsule 100 MG PO HS CAP Gluc 2KCL/Chondr/Juanito Hy/Hy Ac (Glucosamine & Chondroitin Cap) 1 Each Capsule 1 EACH PO BID PRN joint pain CAP Hydrocodone/Acetaminophen ([place] 5mg/325mg) 1 Each Tablet 1 TAB PO Q6H PRN PAIN Ref 0 TAB Multivits,Ca,Minerals/Iron/Fa (Thera-M) 1 Each Tablet 1 EACH PO DAILY TAB Olanzapine (Zyprexa) 5 Mg Tablet 5 MG PO HS TAB Omeprazole (Omeprazole) 20 Mg Tablet.dr 20 MG PO DAILY TAB Phenytoin (Dilantin ER) 100 Mg Cap 100 MG PO BID CAP Potassium Chloride (Klor-Con M20) 20 Meq Tab.er.prt 20 MEQ PO DAILY TAB.SA Sertraline HCl (Sertraline HCl) 50 Mg Tablet 50 MG PO DAILY TAB Tamsulosin HCl (Flomax) 0.4 Mg Cap 0.4 MG PO HS Bph Ref 0 CAP Discontinued Medications: Naproxen (Naproxen) 375 Mg Tablet 375 MG PO TID PRN MILD PAIN Ref 0 TAB Follow up New Orders: CXR (CHEST PA/LAT (2 VIEW)* - Within 2 weeks Discharge Diagnosis See list above. Problems: Copies to: End of Report . ELEUTERIO LOOMIS MD Jun 07, 2016 01:33
[2016-07-12] MEDS ORDERED: DEXT30SU2 PO (13:58)
[2016-07-12] MEDS ORDERED: OMEP20CA12 PO (13:58)
[2016-07-12] MEDS ORDERED: GLUC1TAB PO (13:58)
[2016-07-12] MEDS ORDERED: FLUT16SP NSEACH (13:58)
[2016-07-12] MEDS ORDERED: TAMS0.4C2 PO (13:58)
[2016-07-12] MEDS ORDERED: FRS325T PO (13:58)
[2016-07-12] MEDS ORDERED: CELE100C84 PO (13:58)
[2016-07-12] MEDS ORDERED: FRSM20T PO (14:07)
[2016-07-12] MEDS ORDERED: PRAM177L28 TP (14:17)
[2016-07-12] MEDS ORDERED: AZEL137S NS (14:17)
[2016-07-12] MEDS ORDERED: FAMO-119 PO (14:17)
[2016-07-12] MEDS ORDERED: NAPR375T71 PO (14:17)
[2016-07-12] MEDS ORDERED: BISM262T16 PO (14:17)
[2016-07-12] MEDS ORDERED: IBP200T PO (14:17)
[2016-07-12] MEDS ORDERED: PEG15DRO5 OP (14:17)
[2016-07-12] MEDS ORDERED: TOLN150S2 TP (14:17)
[2016-07-12] MEDS ORDERED: MAGN400O7 PO (14:17)
[2016-07-14] MEDS ORDERED: WRF5T PO (13:26)
[2016-07-14] MEDS ORDERED: ACET325T38 PO (13:26)
[2016-07-14] MEDS ORDERED: CLON0.5T3 PO (13:26)
[2016-07-14] MEDS ORDERED: Hydrocodone Bit/Acetaminophen PO (13:26)
[2016-07-14] MEDS ORDERED: ENXP80I.8 SC (13:26)
[2016-07-14] MEDS ORDERED: FRSM20T PO (13:26)
== END 2016-06-06 16:45 | disposition home or self-care (01) | DRG 190 ==
LOC: ED 15:42 → MED/SURG 18:56
PROVIDERS: ADMIT Internal Medicine; ATTEND Internal Medicine
DX: J44.0 Chronic obstructive pulmonary disease with (acute) lower respiratory infection (principal); J18.9 Pneumonia, unspecified organism; J45.901 Unspecified asthma with (acute) exacerbation; J44.1 Chronic obstructive pulmonary disease with (acute) exacerbation; E86.0 Dehydration; G40.909 Epilepsy, unspecified, not intractable, without status epilepticus; N40.0 Benign prostatic hyperplasia without lower urinary tract symptoms; G62.9 Polyneuropathy, unspecified; M19.90 Unspecified osteoarthritis, unspecified site; F41.9 Anxiety disorder, unspecified
CPT/HCPCS: 36415; 71020; 80053; 80069; 80185; 81003; 82550; 82553; 83605; 83880; 84443; 84484; 85025; 85379; 85610; 86140; 87040; 87486; 87581; 87633; 87798; 94640; 94669; 94760; 99285

== ENCOUNTER 2016-07-11 15:36 | Inpatient (IN) | payer MEDICARE, MEDICAID ==
[~2016-07-11] VITALS: Ht 172.7 cm; Wt 78.8 kg
[2016-07-11] MEDS ORDERED: ALBUTEROL 0.083% NEB SOLUTION 2.5 MG/3 ML VIAL INH ONE (16:05)
[2016-07-11 16:17] LABS: BASOPHILS % (AUTO) 1 % (0-2); EOSINOPHILS # (AUTO) 0.2 10^3uL; EOSINOPHILS % (AUTO) 6 % (0-4); LYMPHOCYTES # (AUTO) 1.3 X10^3; MEAN CORPUSCULAR HGB CONC 34.5 g/dL (31.0-37.0); MEAN CORPUSCULAR VOLUME 93 FL (80-100); MEAN PLATELET VOLUME 10.9 FL (6.0-9.5); MONOCYTES # (AUTO) 0.4 X10^3; MONOCYTES % (AUTO) 11 % (3-11); NEUTROPHILS # (AUTO) 1.8 X10^3; NEUTROPHILS % (AUTO) 48 % (51-67); PLATELET COUNT 167 10^3uL (150-450); WHITE BLOOD COUNT 3.84 10^3uL (4.0-11.0)
[2016-07-11 16:26] LABS: ALBUMIN 4.2 g/dL (3.4-5.0); ANION GAP 15.6 MEQ/L (3-15); CALCULATED IONIZED CALCIUM 3.9 mg/dL (3.8-4.6); TOTAL PROTEIN 7.5 g/dL (6.4-8.5)
[2016-07-11 16:31] LABS: MEAN CORPUSCULAR HEMOGLOBIN 32.2 PG (26.0-34.0)
[2016-07-11] MEDS ORDERED: HEPARIN DRIP 25000 UNIT/250 ML 250 ML IV SCH (19:35)
[2016-07-11] MEDS ORDERED: ENOXAPARIN 80 MG/0.8 ML (LOVENOX) SYR SC ONE (19:45)
[2016-07-11] MEDS ORDERED: CALCIUM CARBONATE CHEWABLE 300 MG (TUMS) TABLET PO PRN (20:10)
[2016-07-11] MEDS ORDERED: POLYETHYLENE GLYCOL 17 GM (MIRALAX) PACKET PO PRN (20:10)
[2016-07-11] MEDS ORDERED: ACETAMINOPHEN 325 MG TAB (TYLENOL) PO PRN ×2 (20:10→20:20)
[2016-07-11] MEDS ORDERED: ONDANSETRON 2 MG/ML (Z0FRAN) 2 ML VIAL IV PRN (20:10)
[2016-07-11] MEDS ORDERED: MAGNESIUM HYDROXIDE 80MG/ML (MILK OF MAGNESIA) 30 ML UDC PO PRN (20:10)
[2016-07-11] MEDS ORDERED: morphine INJ 4 MG/ML 1 ML SYRINGE IV PRN (20:10)
[2016-07-11] MEDS ORDERED: IBUPROFEN 600 MG (MOTRIN) TAB PO PRN (20:10)
[2016-07-11] MEDS ORDERED: MAG HYDROX/AL HYDROX/SIMETH 200-200-20/5 ML (MAG-AL PLUS) 30 ML UDC PO PRN (20:10)
[2016-07-11 20:15] VITALS: BP 139/75
--- NOTE | 2016-07-11 20:15 | NUR ---
Pt admitted to Room 343 from ER via stretcher for bilateral pulmonary emboli. Pt transferred well from stretcher to bed. Pt was able to void on own in urinal upon admit. Pt comes from [facility], has some cognitive deficiencies. Pt is alert and oriented, answers all questions correctly. Pt very talkative and cooperative with staff. Pt oriented to room and plan of care. Pt was accompanied by [facility] staff member who left after admission process was complete. Pt denies discomfort upon admit. Is wearing oxymask with O2 at 5L. No other needs at this time. Call light in reach.
[2016-07-11] MEDS ORDERED: ALBUTEROL HFA (VENTOLIN HFA) COMMON CANNISTER IH PRN (20:20)
[2016-07-11] MEDS ORDERED: HYDROcodone/APAP 5 MG/325 MG (NORCO) TAB PO PRN (20:20)
[2016-07-11] MEDS ORDERED: [UNRECOGNIZED DRUG - OTHER] PO PRN (20:20)
[2016-07-11] MEDS: PHENYTOIN ER 100 MG (DILANTIN) CAPSULE PO SCH (21:01)
[2016-07-11] MEDS: guaiFENesin ER 600 MG (MUCINEX) TAB PO SCH (21:01)
[2016-07-11] MEDS: TAMSULOSIN 0.4 MG (FLOMAX) CAP PO SCH (21:01)
[2016-07-11] MEDS: clonazePAM 0.5 MG (KlonoPIN) TAB PO SCH (21:01)
[2016-07-11] MEDS: OLANZapine 5 MG (ZyPREXA) TAB PO SCH (21:01)
[2016-07-11] MEDS: GABAPENTIN 100 MG (NEURONTIN) CAP PO SCH (21:04)
[2016-07-11] MEDS: CELECOXIB 200 MG PO SCH (21:28)
--- NOTE | 2016-07-11 22:00 | NUR ---
Pt resting without needs at this time. Took all evening medications without difficulties. O2 remains on at 5L per oxymask. Call light in reach.
[2016-07-12] VITALS: BP 131/71
--- NOTE | 2016-07-12 01:00 | NUR ---
Pt is resting well. O2 Sats are mostly staying above 94%. However, pt has an abnormal breathing pattern, similar to [place] without the apneic period. Pt has chest wall movement with each respiration, but at times appears to not have air movement. During these periods, O2 sats drop to 86-89%. Pt also had rhonchi in upper airways. Pt's cough effort weak. This RN and RT performed cough assist with pt. Airways are clearer, pt's voice stronger. Pt reports feeling a difference. Will continue to monitor.
--- NOTE | 2016-07-12 03:05 | NUR ---
Pt's breathing pattern as noted previously continues with O2 sat drops to 79% while on 5-6L per oxymask. Pt recovers quickly. O2 sat drops last 1-4 seconds then immediately return to 94-97%. Reported drops in O2 sats to Dr. Zheng, no new orders received. Pt has no signs distress and no SOA evident. Will continue to monitor.
[2016-07-12 04:00] VITALS: BP 124/56
[2016-07-12] MEDS: PANTOPRAZOLE 40 MG (PROTONIX) TAB PO SCH (06:17)
[2016-07-12 06:31] LABS: MEAN CORPUSCULAR HGB CONC 34.2 g/dL (31.0-37.0); MEAN CORPUSCULAR VOLUME 95 FL (80-100); MEAN PLATELET VOLUME 10.8 FL (6.0-9.5); PLATELET COUNT 165 10^3uL (150-450); WHITE BLOOD COUNT 3.69 10^3uL (4.0-11.0)
[2016-07-12 06:36] LABS: BAND NEUTROPHILS % 0 % (0-6); EOSINOPHILS % 3 % (0-4); MEAN CORPUSCULAR HEMOGLOBIN 32.4 PG (26.0-34.0); MONOCYTES # 0.2 #; MONOCYTES % 5 % (3-11)
[2016-07-12 06:37] LABS: RBC MORPH NORMAL (NORMAL); SEGMENTED NEUTROPHILS % 64 % (51-67); TOTAL CELLS COUNTED 100
--- NOTE | 2016-07-12 07:00 | NUR ---
Report received from Danay HOWE and care assumed.
[2016-07-12 07:10] LABS: ALBUMIN 3.7 g/dL (3.4-5.0); ANION GAP 14.2 MEQ/L (3-15); CALCULATED IONIZED CALCIUM 3.9 mg/dL (3.8-4.6); MAGNESIUM* 2.2 mg/dL (1.6-2.3); PHOSPHORUS 4.6 mg/dL (2.4-4.9); TOTAL PROTEIN 6.8 g/dL (6.4-8.5)
[2016-07-12] MEDS ORDERED: GLUCOSAMINE/CHONDROITIN 500MG-400MG CAPSULE PO PRN (07:45)
[2016-07-12] MEDS ORDERED: NS FLUSH 10 ML PRN IV (07:50)
[2016-07-12] MEDS ORDERED: morphine INJ 2 MG/ML 1 ML SYRINGE IV PRN (07:50)
[2016-07-12] MEDS ORDERED: NS FLUSH 3 ML PRN IV (07:50)
--- NOTE | 2016-07-12 08:00 | NUR ---
Pt has oxymask on at 6L/mask, changed to NC for pt to eat breakfast. Pt up to toilet and voided and had med BM. Pt returned to bed. After he finished his breakfast oxymask reapplied to maintain O2 sats in the 90's. Pt denies pain at present and is resting and watching TV during the morning hours.
[2016-07-12] MEDS: PHENYTOIN ER 100 MG (DILANTIN) CAPSULE PO SCH ×2 (08:29→20:41)
[2016-07-12] MEDS: clonazePAM 0.5 MG (KlonoPIN) TAB PO SCH ×2 (08:30→20:41)
[2016-07-12] MEDS: guaiFENesin ER 600 MG (MUCINEX) TAB PO SCH ×2 (08:30→20:41)
[2016-07-12] MEDS: ENOXAPARIN 80 MG/0.8 ML (LOVENOX) SYR SC SCH ×3 (08:30→20:41)
[2016-07-12] MEDS ORDERED: LORATADINE (CLARITIN) 10 MG TAB PO SCH (09:00)
[2016-07-12] MEDS ORDERED: FERROUS SULFATE 325 MG (IRON) TABLET PO SCH (09:00)
[2016-07-12] MEDS ORDERED: NS FLUSH 3 ML DAILY IV SCH (09:00)
[2016-07-12] MEDS ORDERED: FINASTERIDE (PROSCAR) 5 MG TAB PO SCH (09:00)
[2016-07-12] MEDS ORDERED: FUROSEMIDE 20 MG (LASIX) TAB PO SCH (09:00)
[2016-07-12] MEDS ORDERED: SERTRALINE 50 MG (ZOLOFT) TABLET PO SCH (09:00)
[2016-07-12] MEDS ORDERED: POTASSIUM CHLORIDE ER 20 MEQ TABLET PO SCH (09:00)
[2016-07-12] MEDS ORDERED: FLUTICASONE NASAL 50 MCG/SPRAY (FLONASE) 16 GM BTL NS SCH (09:00)
[2016-07-12] MEDS: CELECOXIB 200 MG PO SCH ×2 (09:21→20:41)
[2016-07-12] MEDS: predniSONE 20 MG (DELTASONE) TABLET PO SCH (09:21)
[2016-07-12 10:42] VITALS: BP 113/65
--- NOTE | 2016-07-12 11:30 | NUR ---
NUTRITION ASSESSMENT Level 1 Patient: Devin Lozada Age/Sex: 75/M Date Screened: 07-12-16 Weight: 187#/85 kg Height: 68 inches Primary Diagnosis: pulmonary embolism Diet Order: regular Relevant labs: glucose 76 Food allergies: N Nutrition Assessment Criteria Age over 80: N Body Mass Index (BMI) under 19: N Admission Screening Indicates Risk? 3 points Moderate/High Risk Diagnosis: N TPN or PPN: N NPO or clear liquid diet: N Serum Glucose <70 or >180: N Hgb A1c >6.7: N/A Total: 3 points Risk Screen: __ Patient at low nutritional risk based on available data; reevaluate in 5-7 days _X_ Patient at moderate nutritional risk based on available data; reevaluate in 3-5 days __ Patient at high nutritional risk; complete Nutrition Assessment within 48 hours of admission. Comments: Noted weight was significantly different in ICU (168.9#) compared with ED yesterday (187#); ED weight was more consistent with last documented weight of 181# on 06-06-16. Asked RN to reweigh pt. at some point just for confirmation that he hasnt had severe weight loss in the past month. Pt. 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 No GI concerns noted. Will reassess as documented above or sooner if pt. has had weight loss.
--- NOTE | 2016-07-12 12:30 | NUR ---
Oxymask removed and nc oxygen applied so pt could eat lunch. Pt tolerated is fair. After finished eating, oxymask reapplied at 6L. Pt. had visitors after lunch. Denies needs at present, will continue to monitor.
[2016-07-12 13:40] VITALS: BP 116/67
[2016-07-12] MEDS ORDERED: ACETAMINOPHEN 325 MG TAB (TYLENOL) PO PRN (14:00)
--- NOTE | 2016-07-12 15:01 | NUR ---
MED REC COMPLETE--current med list obtained from patient's living facility ([facility]) and external med history application. Completed by Valerie Hernandez, Pharm. D. Candidate 2017.
[2016-07-12 17:41] VITALS: BP 119/72
--- NOTE | 2016-07-12 17:50 | NUR ---
Pt has been sitting up in the chair since 1500 and is enjoying it. Pt states he sits up in the recliner at home most of the time. Denies pain or needs at present. Oxymask remains on at 6L. Monitor remains on, VS stable. Pt watching TV at present. Will continue to monitor.
--- NOTE | 2016-07-12 19:10 | NUR ---
Report received, care assumed. Pt up in chair watching television.
[2016-07-12 20:00] VITALS: BP 102/81
[2016-07-12] MEDS ORDERED: warFARin 5 MG (COUMADIN) TAB PO ONE (20:30)
[2016-07-12] MEDS: GABAPENTIN 100 MG (NEURONTIN) CAP PO SCH (20:41)
[2016-07-12] MEDS: TAMSULOSIN 0.4 MG (FLOMAX) CAP PO SCH (20:41)
[2016-07-12] MEDS: OLANZapine 5 MG (ZyPREXA) TAB PO SCH (20:42)
[2016-07-13] VITALS: BP 135/68
[2016-07-13 04:00] VITALS: BP 136/55
[2016-07-13] MEDS: PANTOPRAZOLE 40 MG (PROTONIX) TAB PO SCH (06:21)
[2016-07-13] MEDS ORDERED: ONDANSETRON 4 MG (ZOFRAN) ORAL DISSOLVE TAB PO PRN (07:55)
--- NOTE | 2016-07-13 08:00 | NUR ---
Sleeping c HOB up 30 degrees - awakened with ease - see ICU assessment
[2016-07-13] MEDS: predniSONE 20 MG (DELTASONE) TABLET PO SCH (08:02)
--- NOTE | 2016-07-13 08:10 | NUR ---
Up to chair - transferred self with ease using walker - O2 per nc @ 4 L - O2 sat 91-92%
[2016-07-13] MEDS ORDERED: ACETAMINOPHEN 325 MG TAB (TYLENOL) PO PRN (08:38)
[2016-07-13] MEDS ORDERED: ALBUTEROL HFA (VENTOLIN HFA) COMMON CANNISTER IH PRN (08:38)
[2016-07-13] MEDS ORDERED: CALCIUM CARBONATE CHEWABLE 300 MG (TUMS) TABLET PO PRN (08:38)
--- NOTE | 2016-07-13 08:40 | NUR ---
Ambulated to toilet with walker - walks bent forward @ waist - "a little SOA" - pericare provided c assist - washed hands - ambulated back to chair to finish eating breakfast
[2016-07-13] MEDS ORDERED: MAG HYDROX/AL HYDROX/SIMETH 200-200-20/5 ML (MAG-AL PLUS) 30 ML UDC PO PRN (08:42)
[2016-07-13] MEDS ORDERED: MAGNESIUM HYDROXIDE 80MG/ML (MILK OF MAGNESIA) 30 ML UDC PO PRN (08:42)
[2016-07-13] MEDS ORDERED: HYDROcodone/APAP 5 MG/325 MG (NORCO) TAB PO PRN (08:42)
[2016-07-13] MEDS ORDERED: POLYETHYLENE GLYCOL 17 GM (MIRALAX) PACKET PO PRN (08:43)
[2016-07-13] MEDS ORDERED: SODIUM CHLORIDE FLUSH 10 ML SYR IV PRN (08:44)
[2016-07-13] MEDS ORDERED: SODIUM CHLORIDE FLUSH 3 ML SYR IV PRN (08:44)
[2016-07-13] MEDS ORDERED: WARFARIN MONITORING XX SCH (09:00)
[2016-07-13] MEDS ORDERED: GLUCOSAMINE/CHONDROITIN 500MG-400MG CAPSULE PO PRN (09:00)
[2016-07-13] MEDS: WARFARIN MONITORING XX SCH (09:00)
[2016-07-13] MEDS: FUROSEMIDE 20 MG (LASIX) TAB PO SCH (09:31)
[2016-07-13] MEDS: SODIUM CHLORIDE FLUSH 3 ML SYR IV SCH (09:31)
[2016-07-13] MEDS: guaiFENesin ER 600 MG (MUCINEX) TAB PO SCH ×2 (09:32→20:56)
[2016-07-13] MEDS: PHENYTOIN ER 100 MG (DILANTIN) CAPSULE PO SCH ×2 (09:32→20:57)
[2016-07-13] MEDS: FERROUS SULFATE 325 MG (IRON) TABLET PO SCH (09:32)
[2016-07-13] MEDS: POTASSIUM CHLORIDE ER 20 MEQ TABLET PO SCH (09:32)
[2016-07-13] MEDS: clonazePAM 0.5 MG (KlonoPIN) TAB PO SCH ×2 (09:33→20:56)
[2016-07-13] MEDS: FINASTERIDE (PROSCAR) 5 MG TAB PO SCH (09:33)
[2016-07-13] MEDS: ENOXAPARIN 80 MG/0.8 ML (LOVENOX) SYR SC SCH ×2 (09:33→20:55)
[2016-07-13] MEDS: CELECOXIB 200 MG PO SCH ×2 (09:33→20:57)
[2016-07-13] MEDS: SERTRALINE 50 MG (ZOLOFT) TABLET PO SCH (09:34)
[2016-07-13] MEDS: LORATADINE (CLARITIN) 10 MG TAB PO SCH (09:35)
--- NOTE | 2016-07-13 09:55 | NUR ---
O2 sat on 4 L per nc 93%
[2016-07-13] MEDS: FLUTICASONE NASAL 50 MCG/SPRAY (FLONASE) 16 GM BTL NS SCH (11:11)
[2016-07-13 11:45] VITALS: BP 114/60
--- NOTE | 2016-07-13 11:46 | NUR ---
Remains up in chair watching TV - enjoys visiting - O2 4 L per nc --> 98%; decreased O2 to 3 L per nc
--- NOTE | 2016-07-13 12:35 | NUR ---
Amb to toilet and back c walker and O2 per nc @ 3 L nc
--- NOTE | 2016-07-13 14:30 | NUR ---
Condition report called to Suzanne HOWE
--- NOTE | 2016-07-13 14:35 | NUR ---
Ambulated with walker approx 50 ft --> then to w/c to room 316 - )2 @ 3 L per nc - belongings taken to room
--- NOTE | 2016-07-13 14:36 | NUR ---
Patient arrives to room 316 via wheelchair. 2L of 02 intact per nc. Patient reports mild SOA due to recent activity. Lung sounds diminished throughout. HR RRR. Oriented to room and floor routines. Call light in reach.
[2016-07-13 16:00] VITALS: BP 133/75
[2016-07-13] MEDS ORDERED: warFARin 5 MG (COUMADIN) TAB PO SCH (17:00)
[2016-07-13] MEDS ORDERED: warFARin 5 MG (COUMADIN) TAB PO ONE (17:00)
--- NOTE | 2016-07-13 18:03 | NUR ---
Patient sitting up in recliner. Denies pain or distress. 2L of 02 intact per nc. Tolerating supper tray well. Call light in reach.
--- NOTE | 2016-07-13 19:45 | NUR ---
Pt is resting in recliner watching tv, alert and oriented x 4, Resp are even and nonlabored, LCTAB, currently wearing 2LPM of O2 via NC, HRRR, BS are active x 4 quadrants. SL is patent, no redness, swelling, or s/s of infection noted at this time. Denies pain or needs at this time. Call light is in reach, will continue to monitor.
[2016-07-13] MEDS ORDERED: OLANZapine 5 MG (ZyPREXA) TAB PO SCH (21:00)
[2016-07-13] MEDS ORDERED: TAMSULOSIN 0.4 MG (FLOMAX) CAP PO SCH (21:00)
[2016-07-13] MEDS ORDERED: GABAPENTIN 100 MG (NEURONTIN) CAP PO SCH (21:00)
[2016-07-14 00:21] VITALS: BP 126/66
--- NOTE | 2016-07-14 04:16 | NUR ---
Pt is currently resting in bed asleep, has denied pain or discomfort during this shift. Call light is in reach, will continue to monitor.
[2016-07-14] MEDS ORDERED: PANTOPRAZOLE 40 MG (PROTONIX) TAB PO ONE (05:51)
[2016-07-14 06:22] LABS: BASOPHILS % (AUTO) 0 % (0-2); EOSINOPHILS # (AUTO) 0.2 10^3uL; EOSINOPHILS % (AUTO) 3 % (0-4); LYMPHOCYTES # (AUTO) 1.4 X10^3; MEAN CORPUSCULAR HGB CONC 34.8 g/dL (31.0-37.0); MEAN CORPUSCULAR VOLUME 94 FL (80-100); MEAN PLATELET VOLUME 11.1 FL (6.0-9.5); MONOCYTES # (AUTO) 0.8 X10^3; MONOCYTES % (AUTO) 11 % (3-11); NEUTROPHILS # (AUTO) 4.6 X10^3; NEUTROPHILS % (AUTO) 66 % (51-67); PLATELET COUNT 182 10^3uL (150-450); WHITE BLOOD COUNT 7.02 10^3uL (4.0-11.0)
[2016-07-14 06:34] LABS: MEAN CORPUSCULAR HEMOGLOBIN 32.7 PG (26.0-34.0)
[2016-07-14] MEDS ORDERED: PANTOPRAZOLE 40 MG (PROTONIX) TAB PO SCH (07:00)
[2016-07-14] MEDS: LORATADINE (CLARITIN) 10 MG TAB PO SCH (08:09)
[2016-07-14] MEDS: POTASSIUM CHLORIDE ER 20 MEQ TABLET PO SCH (08:09)
[2016-07-14] MEDS: PHENYTOIN ER 100 MG (DILANTIN) CAPSULE PO SCH (08:09)
[2016-07-14] MEDS: FERROUS SULFATE 325 MG (IRON) TABLET PO SCH (08:09)
[2016-07-14] MEDS: FINASTERIDE (PROSCAR) 5 MG TAB PO SCH (08:09)
[2016-07-14] MEDS: SERTRALINE 50 MG (ZOLOFT) TABLET PO SCH (08:09)
[2016-07-14] MEDS: clonazePAM 0.5 MG (KlonoPIN) TAB PO SCH (08:10)
[2016-07-14] MEDS: guaiFENesin ER 600 MG (MUCINEX) TAB PO SCH (08:10)
[2016-07-14] MEDS: FUROSEMIDE 20 MG (LASIX) TAB PO SCH (08:10)
[2016-07-14] MEDS: FLUTICASONE NASAL 50 MCG/SPRAY (FLONASE) 16 GM BTL NS SCH (08:11)
[2016-07-14] MEDS: ENOXAPARIN 80 MG/0.8 ML (LOVENOX) SYR SC SCH (08:13)
[2016-07-14 08:35] VITALS: BP 181/54
--- NOTE | 2016-07-14 09:00 | NUR ---
Pt rests in chair without needs. Skin warm, dry, intact. Resprs nonlabored, even on 2L NC. Pt denies pain. SL intact.
[2016-07-14] MEDS: WARFARIN MONITORING XX SCH (11:10)
[2016-07-14] MEDS: SODIUM CHLORIDE FLUSH 3 ML SYR IV SCH (11:10)
[2016-07-14] MEDS: CELECOXIB 200 MG PO SCH (11:36)
[2016-07-14 13:16] VITALS: BP 114/71
--- NOTE | 2016-07-14 13:52 | NUR ---
Pt. has been accepted to [facility] for skilled care. Pt. will go to House [id number] Rm [phone] Ext. [phone]. Transportation will be here at 15:00 to package pick up Pt. and take him to [facility]. Pt. [facility] caseworker Maru ([phone]) has been informed of Pt. discharge details.
--- NOTE | 2016-07-14 14:49 | NUR ---
Report called to CARLEY Mancia in house 803 at [facility]. Pt dressed in home clothes. Belongings gathered. Transportation to arrive at 1500.
--- NOTE | 2016-07-14 15:09 | NUR ---
SL removed with catheter tip intact. [facility] Pt dismissed at this time via w/c accompanied by Josue. Skin warm, dry, intact. Resprs nonlabored, even on 1L NC.
== END 2016-07-14 15:10 | DRG 189 ==
LOC: ED 15:37 → ICU 19:57 → MED/SURG 07-13 14:44
PROVIDERS: ADMIT Family Medicine; ATTEND Family Medicine
DX: J96.01 Acute respiratory failure with hypoxia (principal); I26.99 Other pulmonary embolism without acute cor pulmonale; G40.909 Epilepsy, unspecified, not intractable, without status epilepticus; J45.909 Unspecified asthma, uncomplicated; F32.9 Major depressive disorder, single episode, unspecified; N40.0 Benign prostatic hyperplasia without lower urinary tract symptoms; I10 Essential (primary) hypertension; G62.9 Polyneuropathy, unspecified; K21.9 Gastro-esophageal reflux disease without esophagitis; F70 Mild intellectual disabilities
CPT/HCPCS: 36415; 71020; 80053; 82803; 83735; 83880; 84100; 84443; 84484; 85007; 85025; 85027; 85379; 85610; 86140; 93005; 93010; 94640; 99285

== ENCOUNTER → 2016-07-19 | Outpatient (REF) | payer MEDICARE, MEDICAID ==
[2016-07-19 09:16] LABS: BASOPHILS % (AUTO) 0 % (0-2); EOSINOPHILS # (AUTO) 0.3 10^3uL; EOSINOPHILS % (AUTO) 5 % (0-4); LYMPHOCYTES # (AUTO) 1.3 X10^3; MEAN CORPUSCULAR HEMOGLOBIN 32.3 PG (26.0-34.0); MEAN CORPUSCULAR HGB CONC 34.5 g/dL (31.0-37.0); MEAN CORPUSCULAR VOLUME 94 FL (80-100); MEAN PLATELET VOLUME 11.5 FL (6.0-9.5); MONOCYTES # (AUTO) 0.5 X10^3; MONOCYTES % (AUTO) 10 % (3-11); NEUTROPHILS # (AUTO) 3.1 X10^3; NEUTROPHILS % (AUTO) 60 % (51-67); PLATELET COUNT 232 10^3uL (150-450); WHITE BLOOD COUNT 5.12 10^3uL (4.0-11.0)
== END ==
LOC: EDSTATUS 09:12 → LAB 09:13
PROVIDERS: ATTEND Family Medicine
DX: R68.89 Other general symptoms and signs (principal)
CPT/HCPCS: 36415; 85025

== ENCOUNTER → 2016-08-15 | Outpatient (CLI) | payer MEDICARE, MEDICAID | LOC: LAB 12:44 | PROVIDERS: ATTEND Family Medicine | DX: Z51.81 Encounter for therapeutic drug level monitoring (principal); Z79.01 Long term (current) use of anticoagulants | CPT/HCPCS: 36415; 85610 ==

== ENCOUNTER → 2016-08-22 | Outpatient (REF) | payer MEDICARE, MEDICAID ==
[2016-08-22 17:45] LABS: BILIRUBIN,URINE Negative (Negative); CLARITY,URINE Clear; COLOR,URINE Yellow; GLUCOSE, URINE (UA) Negative (Negative); LEUKOCYTE ESTERASE ,URINE Negative (Negative); PH,URINE 5.5 (5.0 - 8.0); UROBILINOGEN,URINE 0.2 mg/dL (0.2-1.0)
== END ==
LOC: LAB 16:38
PROVIDERS: ATTEND Family Medicine
DX: R32 Unspecified urinary incontinence (principal)
CPT/HCPCS: 81003

== ENCOUNTER 2016-09-21 10:53 | Observation (INO) | payer MEDICARE, MEDICAID ==
[~2016-09-21] VITALS: Ht 172.7 cm; Wt 76.7 kg
[~2016-09-21 10:53] MED LIST changes: -POTA20LI PO; -WARF2TAB6 PO; -WARF4TAB7 PO
[2016-09-21] MEDS ORDERED: ALBUTEROL 0.083% NEB SOLUTION 2.5 MG/3 ML VIAL INH ONE (11:00)
--- OUTSIDE RECORDS SUMMARY | 2016-09-21 11:01 | XMS REPORT | Continuity of Care Document ---
Author Author [facility] Address Unknown Phone Unavailable Allergies Active Description Code Type Severity Reaction Onset Reported/Identified Relationship to Patient Clinical Status Yes Penicillins [id number] Drug Allergy Unknown N/A 07/11/2016 Medications Problems Date Dx Coded Attending Type Code Diagnosis Diagnosed By 06/27/2014 Yonas Anaya Ot 345.10 06/27/2014 Yonas Anaya Ot 780.4 06/27/2014 ANA NGUYEN MD Ot 780.39 06/30/2014 Yonas Anaya Ot 345.10 06/30/2014 Yonas Anaya Ot 780.4 06/30/2014 ANA NGUYEN MD Ot 780.39 07/21/2014 ANA NGUYEN MD Ot 780.39 09/24/2014 ANA NGUYEN MD Ot 780.39 07/01/2015 ANA NGUYEN MD Ot R56.9 07/22/2015 ANA NGUYEN MD Ot R56.9 08/04/2015 ANA NGUYEN MD Ot R56.9 06/03/2016 Yonas Anaya Ot 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 06/03/2016 Yonas Anaya Ot 780.4 DIZZINESS AND GIDDINESS 06/03/2016 ANA NGUYEN MD Ot 780.39 OTHER CONVULSIONS 06/03/2016 ANA NGUYEN MD Ot 780.39 OTHER CONVULSIONS 06/03/2016 ANA NGUYEN MD Ot R56.9 UNSPECIFIED CONVULSIONS 06/06/2016 ELIZABETH FELDER MD Ot E86.0 DEHYDRATION 06/06/2016 ELIZABETH FELDER MD Ot F41.9 ANXIETY DISORDER, UNSPECIFIED 06/06/2016 ELIZABETH FELDER MD Ot G40.909 EPILEPSY, UNSP, NOT INTRACTABLE, WITHOUT 06/06/2016 ELIZABETH FELDER MD Ot G62.9 POLYNEUROPATHY, UNSPECIFIED 06/06/2016 ELIZABETH FELDER MD Ot J18.9 PNEUMONIA, UNSPECIFIED ORGANISM 06/06/2016 ELIZABETH FELDER MD Ot J44.0 CHRONIC OBSTRUCTIVE PULMON DISEASE W ACU 06/06/2016 ELIZABETH FELDER MD Ot J44.1 CHRONIC OBSTRUCTIVE PULMONARY DISEASE W 06/06/2016 ELIZABETH FELDER MD Ot J45.901 UNSPECIFIED ASTHMA WITH (ACUTE) EXACERBA 06/06/2016 ELIZABETH FELDER MD Ot M19.90 UNSPECIFIED OSTEOARTHRITIS, UNSPECIFIED 06/06/2016 ELIZABETH FELDER MD Ot N40.0 BENIGN PROSTATIC HYPERPLASIA WITHOUT LOW 06/08/2016 NEFTALI DONOHUE DO M Ot R06.00 DYSPNEA, UNSPECIFIED 06/27/2016 NEFTALI DONOHUE DO Ot R06.00 DYSPNEA, UNSPECIFIED 07/14/2016 DILCIA RUBIO MD Ot F32.9 MAJOR DEPRESSIVE DISORDER, SINGLE EPISOD 07/14/2016 DILCIA RUBIO MD Ot F70 MILD INTELLECTUAL DISABILITIES 07/14/2016 DILCIA RUBIO MD Ot G40.909 EPILEPSY, UNSP, NOT INTRACTABLE, WITHOUT 07/14/2016 DILCIA RUBIO MD Ot G62.9 POLYNEUROPATHY, UNSPECIFIED 07/14/2016 DILCIA RUBIO MD Ot I10 ESSENTIAL (PRIMARY) HYPERTENSION 07/14/2016 DILCIA RUBIO MD Ot I26.99 OTHER PULMONARY EMBOLISM WITHOUT ACUTE C 07/14/2016 DILCIA RUBIO MD Ot J45.909 UNSPECIFIED ASTHMA, UNCOMPLICATED 07/14/2016 DILCIA RUBIO MD Ot J96.01 ACUTE RESPIRATORY FAILURE WITH HYPOXIA 07/14/2016 DILCIA RUBIO MD Ot K21.9 GASTRO-ESOPHAGEAL REFLUX DISEASE WITHOUT 07/14/2016 DILCIA RUBIO MD Ot N40.0 BENIGN PROSTATIC HYPERPLASIA WITHOUT LOW 07/19/2016 ANA NGUYEN MD Ot R68.89 OTHER GENERAL SYMPTOMS AND SIGNS 07/19/2016 Yonas Anaya Ot 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 07/19/2016 Yonas Anaya Ot 780.4 DIZZINESS AND GIDDINESS 07/19/2016 ANA NGUYEN MD Ot 780.39 OTHER CONVULSIONS 07/19/2016 ANA NGUYEN MD Ot 780.39 OTHER CONVULSIONS 07/19/2016 ANA NGUYEN MD Ot R56.9 UNSPECIFIED CONVULSIONS 07/19/2016 CHAARNJIT DO NEFTALI Gordillo Ot R06.00 DYSPNEA, UNSPECIFIED 07/19/2016 ANA NGUYEN MD Ot R68.89 OTHER GENERAL SYMPTOMS AND SIGNS 07/19/2016 ANA NGUYEN MD Ot R68.89 OTHER GENERAL SYMPTOMS AND SIGNS 07/19/2016 ANA NGUYEN MD Ot R68.89 OTHER GENERAL SYMPTOMS AND SIGNS 07/20/2016 ANA NGUYEN MD Ot R68.89 OTHER GENERAL SYMPTOMS AND SIGNS 07/20/2016 ANA NGUYEN MD Ot R68.89 OTHER GENERAL SYMPTOMS AND SIGNS 07/25/2016 ANA NGUYEN MD Ot R68.89 OTHER GENERAL SYMPTOMS AND SIGNS 08/08/2016 ANA NGUYEN MD Ot R68.89 OTHER GENERAL SYMPTOMS AND SIGNS 08/15/2016 ANA NGUYEN MD Ot Z79.01 DOUBLE NEEDLE OPERATOR (CURRENT) USE OF ANTICOAGULANT 08/15/2016 ANA NGUYEN MD, Ot Z79.01 DOUBLE NEEDLE OPERATOR (CURRENT) USE OF ANTICOAGULANT 08/18/2016 ANA NGUYEN MD Ot Z51.81 ENCOUNTER FOR THERAPEUTIC DRUG LEVEL MON 08/18/2016 ANA NGUYEN MD Ot Z79.01 USP (CURRENT) USE OF ANTICOAGULANT 08/18/2016 ANA NGUYEN MD Ot Z51.81 ENCOUNTER FOR THERAPEUTIC DRUG LEVEL MON 08/18/2016 ANA NGUYEN MD Ot Z79.01 DOUBLE NEEDLE OPERATOR (CURRENT) USE OF ANTICOAGULANT 08/26/2016 ANA NGUYEN MD Ot R32 UNSPECIFIED URINARY INCONTINENCE 09/08/2016 ANA NGUYEN MD Ot Z51.81 ENCOUNTER FOR THERAPEUTIC DRUG LEVEL MON 09/08/2016 ANA NGUYEN MD Ot Z79.01 USP (CURRENT) USE OF ANTICOAGULANT Procedures Results Test Result Range UA CULTURE IF INDICATED* - 06/03/16 16:20 COLLECTION METHOD RANDOM VOIDED Color of urine by auto Yellow Urine appearance determination Clear Urine pH measurement by automated test strip 5.5 5.0 - 8.0 Specific gravity of urine by automated test strip 1.020 1.005-1.030 Urine protein measurement by test strip (mass/volume) Negative Negative Urine glucose detection by automated test strip Negative Negative Urine erythrocytes count by automated test strip (number/volume) Negative Negative Urine ketones detection by automated test strip Negative Negative Urine nitrite detection by test strip Negative Negative Urine total bilirubin detection by automated test strip Negative Negative Urine urobilinogen measurement by automated test strip (mass/volume) 0.2 0.2-1.0 Urine leukocyte esterase detection by dipstick Negative Negative Complete blood count (CBC) with automated white blood cell (WBC) differential - 06/03/16 16:25 Blood automated leukocyte count 5.79 4.0 -11.0 Erythrocytes 4.76 4.50-5.50 12.0-16.0;g/dL 14.9 13.5-17.0 Hematocrit 42.80 39.00-50.00 Automated erythrocyte mean corpuscular volume 90 80-100 Mean corpuscular hemoglobin (MCH) determination 31.3 26.0-34.0 Automated erythrocyte mean corpuscular hemoglobin concentration measurement ( mass/volume) 34.8 31.0-37.0 Erythrocyte distribution width 12.8 11.8 -15.6 Automated blood platelet count 231 150- 450 Automated blood platelet mean volume measurement 10.8 6.0-9.5 Automated neutrophil percentage 62 51- 67 Lymphocytes/100 leukocytes 22 20-46 Automated monocyte percentage 9 3-11 Eosinophil count auto 7 0-4 Automated basophil percentage 0 0-2 Automated blood neutrophil count 3.6 Blood lymphocytes count (number/volume) 1.3 Automated blood monocyte count 0.5 Blood absolute eosinophil count 0.4 Basophils 0.0 Prothrombin time (PT) with international normalized ratio (INR) - 06/03/16 16: 25 Prothrombin time (PT) in platelet poor plasma by coagulation assay 11.4 10.0-12.5 INR 1.0 0.8-1.4 D-dimer test - 06/03/16 16:25 D-dimer test 494 0-500 Comprehensive metabolic panel - 06/03/16 16:25 Sodium measurement 94 70-110 Carbon dioxide measurement 33 22-29 Serum or plasma anion gap 12.4 3-15 BLOOD UREA NITROGEN 23 7-18 CREATININE SERUM 0.67 0.8-1.5 Brucella species antibody panel (IgG, IgM) 34 10-20 Estimated glomerular filtration rate (GFR) 140.3 Estimated glomerular filtration rate (GFR) non- 116.0 OSMOLALITY,CALCULATED 277 280-300 CALCIUM 9.2 8.8-10.8 Calculated ionized calcium measurement 4.2 3.8-4.6 BILIRUBIN,TOTAL 0.5 0.1-1.0 Serum or plasma alkaline phosphatase measurement 144 38-126 ASPARTATE AMINO TRANSFERASE 31 15-37 ALANINE AMINOTRANSFERASE 35 30-65 Serum or plasma total protein measurement 6.7 6.4-8.5 Serum or plasma albumin measurement 4.1 3.4-5.0 Serum or plasma albumin/globulin mass ratio 1.576 1.1-1.8 Serum or plasma creatine kinase measurement - 06/03/16 16:25 Serum or plasma creatine kinase measurement 55 55-170 Serum or plasma creatine kinase MB measurement - 06/03/16 16:25 Serum or plasma creatine kinase MB measurement 1.6 0.0-6.0 TROPONIN I* - 06/03/16 16:25 TROPONIN I < 0.012 0.010-0.080 NT-Pro BNP - 06/03/16 16:25 NT-Pro BNP 277 0-125 THYROID STIMULATING HORMONE* - 06/03/16 16:25 THYROID STIMULATING HORMONE 0.71 0.46- 4.68 C REACTIVE PROTEIN* - 06/03/16 16:25 C REACTIVE PROTEIN* 0.90 0.0-0.9 PHENYTOIN (DILANTIN) - 06/03/16 16:25 PHENYTOIN (DILANTIN) 10.8 10.0-20.0 RESPIRATORY PANEL by PCR - 06/03/16 16:25 Adenovirus DNA Negative Negative Human coronavirus 229E RNA Negative Negative Coronovirus HKU1 Negative Negative Human coronavirus NL63 RNA Negative Negative Human coronavirus OC43 RNA Negative Negative Human metapneumovirus RNA Negative Negative Rhinovirus+Enterovirus RNA Negative Negative Influenza virus A subtype Negative Negative Influenza virus B RNA Negative Negative Parainfluenza virus 1 RNA Negative Negative Parainfluenza virus 2 RNA Negative Negative Parainfluenza virus 3 RNA Negative Negative Parainfluenza virus 4 RNA Negative Negative Respiratory syncytial virus RNA Negative Negative Bordetella pertussis DNA Negative Negative Chlamydophila pneumoniae DNA Negative Negative Mycoplasma pneumoniae DNA Negative Negative Bacterial blood culture - 06/03/16 18:20 Bacterial blood culture NG5 LACTIC ACID - 06/03/16 18:25 LACTIC ACID 0.9 0.7-2.1 Bacterial blood culture - 06/03/16 18:25 Bacterial blood culture NG5 Complete blood count (CBC) with automated white blood cell (WBC) differential - 06/04/16 05:34 Blood automated leukocyte count 6.54 4.0 -11.0 Erythrocytes 4.53 4.50-5.50 12.0-16.0;g/dL 14.2 13.5-17.0 Hematocrit 40.80 39.00-50.00 Automated erythrocyte mean corpuscular volume 90 80-100 Mean corpuscular hemoglobin (MCH) determination 31.3 26.0-34.0 Automated erythrocyte mean corpuscular hemoglobin concentration measurement ( mass/volume) 34.8 31.0-37.0 Erythrocyte distribution width 12.7 11.8 -15.6 Automated blood platelet count 219 150- 450 Automated blood platelet mean volume measurement 11.3 6.0-9.5 Complete blood count, platelets with manual differential - 06/04/16 05:34 Total cell count 100 Blood segmented neutrophils percentage 90 51-67 Blood band neutrophil count as percentage of total leukocytes 1 0-6 LYMPHOCYTES % 7 20-46 Automated monocyte percentage 1 3-11 Eosinophil count auto 1 0-4 Basophils 0 0-2 NEUTROPHILS(SEG) 5.9 NEUTROPHILS # BANDS 0.1 Blood lymphocytes manual count (number/volume) 0.5 Automated blood monocyte count 0.1 Blood absolute eosinophil count 0.1 Basophils 0.0 Erythrocyte morphology assessment NORMAL NORMAL Renal function panel - 06/04/16 05:34 Sodium measurement 125 70-110 Carbon dioxide measurement 29 22-29 Serum or plasma anion gap 13.8 3-15 BLOOD UREA NITROGEN 25 7-18 CREATININE SERUM 0.69 0.8-1.5 Estimated glomerular filtration rate (GFR) 135.6 Estimated glomerular filtration rate (GFR) non- 112.1 CALCIUM 9.0 8.8-10.8 Phosphorus measurement 3.8 2.4-4.9 Serum or plasma albumin measurement 3.9 3.4-5.0 VENOUS BLOOD GAS - 07/11/16 16:05 pH VBG 7.39 7.32-7.43 PvCO2 45 38-55 PvO2 36 38-55 VBG HCO3 26.9 20.0-26.0 VBG TOTAL CO2 28 VBG BASE EXCESS 2.0 3.0-3.0 SvO2 68 60-80 PUNCTURE SITE VENOUS VBG ALLENS TEST N/A VBG DELIVERY Room Air Prothrombin time (PT) with international normalized ratio (INR) - 07/11/16 16: 05 Prothrombin time (PT) in platelet poor plasma by coagulation assay 11.2 10.0-12.5 INR 1.0 0.8-1.4 D-dimer test - 07/11/16 16:05 D-dimer test 2403 0-500 Complete blood count (CBC) with automated white blood cell (WBC) differential - 07/11/16 16:05 Blood automated leukocyte count 3.84 4.0 -11.0 Erythrocytes 4.57 4.50-5.50 12.0-16.0;g/dL 14.7 13.5-17.0 Hematocrit 42.60 39.00-50.00 Automated erythrocyte mean corpuscular volume 93 80-100 Mean corpuscular hemoglobin (MCH) determination 32.2 26.0-34.0 Automated erythrocyte mean corpuscular hemoglobin concentration measurement ( mass/volume) 34.5 31.0-37.0 Erythrocyte distribution width 12.9 11.8 -15.6 Automated blood platelet count 167 150- 450 Automated blood platelet mean volume measurement 10.9 6.0-9.5 Automated neutrophil percentage 48 51- 67 Lymphocytes/100 leukocytes 35 20-46 Automated monocyte percentage 11 3-11 Eosinophil count auto 6 0-4 Automated basophil percentage 1 0-2 Automated blood neutrophil count 1.8 Blood lymphocytes count (number/volume) 1.3 Automated blood monocyte count 0.4 Blood absolute eosinophil count 0.2 Basophils 0.0 Comprehensive metabolic panel - 07/11/16 16:05 Sodium measurement 95 70-110 CARBON DIOXIDE 27 22-29 Serum or plasma anion gap 15.6 3-15 BLOOD UREA NITROGEN 27 7-18 CREATININE SERUM 0.82 0.8-1.5 Brucella species antibody panel (IgG, IgM) 33 10-20 Estimated glomerular filtration rate (GFR) 111.1 Estimated glomerular filtration rate (GFR) non- 91.8 OSMOLALITY,CALCULATED 281 280-300 CALCIUM 9.1 8.8-10.8 Calculated ionized calcium measurement 3.9 3.8-4.6 BILIRUBIN,TOTAL 0.7 0.1-1.0 Serum or plasma alkaline phosphatase measurement 183 38-126 ASPARTATE AMINO TRANSFERASE 38 15-37 ALANINE AMINOTRANSFERASE 36 30-65 Serum or plasma total protein measurement 7.5 6.4-8.5 Serum or plasma albumin measurement 4.2 3.4-5.0 Serum or plasma albumin/globulin mass ratio 1.272 1.1-1.8 TROPONIN I* - 07/11/16 16:05 TROPONIN I 0.019 0.010-0.080 NT-Pro BNP - 07/11/16 16:05 NT-Pro BNP 1820 0-125 THYROID STIMULATING HORMONE* - 07/11/16 16:05 THYROID STIMULATING HORMONE 0.49 0.46- 4.68 C REACTIVE PROTEIN* - 07/11/16 16:05 C REACTIVE PROTEIN* 1.80 0.0-0.9 CBC AND MANUAL DIFF - 07/12/16 06:15 Blood automated leukocyte count 3.69 4.0 -11.0 Erythrocytes 4.26 4.50-5.50 12.0-16.0;g/dL 13.8 13.5-17.0 Hematocrit 40.30 39.00-50.00 Automated erythrocyte mean corpuscular volume 95 80-100 Mean corpuscular hemoglobin (MCH) determination 32.4 26.0-34.0 Automated erythrocyte mean corpuscular hemoglobin concentration measurement ( mass/volume) 34.2 31.0-37.0 Erythrocyte distribution width 12.7 11.8 -15.6 Automated blood platelet count 165 150- 450 Automated blood platelet mean volume measurement 10.8 6.0-9.5 Total cell count 100 Blood segmented neutrophils percentage 64 51-67 Blood band neutrophil count as percentage of total leukocytes 0 0-6 LYMPHOCYTES % 28 20-46 Automated monocyte percentage 5 3-11 Eosinophil count auto 3 0-4 Basophils 0 0-2 Manual blood metamyelocytes/100 leukocytes 0 0-1 NEUTROPHILS(SEG) 2.4 NEUTROPHILS # BANDS 0.0 Blood lymphocytes manual count (number/volume) 1.0 Automated blood monocyte count 0.2 Blood absolute eosinophil count 0.1 Basophils 0.0 Erythrocyte morphology assessment NORMAL NORMAL Comprehensive metabolic panel - 07/12/16 06:15 Sodium measurement 76 70-110 CARBON DIOXIDE 29 22-29 Serum or plasma anion gap 14.2 3-15 BLOOD UREA NITROGEN 22 7-18 CREATININE SERUM 0.70 0.8-1.5 Brucella species antibody panel (IgG, IgM) 31 10-20 Estimated glomerular filtration rate (GFR) 133.4 Estimated glomerular filtration rate (GFR) non- 110.2 OSMOLALITY,CALCULATED 275 280-300 CALCIUM 8.7 8.8-10.8 Calculated ionized calcium measurement 3.9 3.8-4.6 BILIRUBIN,TOTAL 0.7 0.1-1.0 Serum or plasma alkaline phosphatase measurement 138 38-126 ASPARTATE AMINO TRANSFERASE 35 15-37 ALANINE AMINOTRANSFERASE 35 30-65 Serum or plasma total protein measurement 6.8 6.4-8.5 Serum or plasma albumin measurement 3.7 3.4-5.0 Serum or plasma albumin/globulin mass ratio 1.193 1.1-1.8 Phosphorus measurement - 07/12/16 06:15 Phosphorus measurement 4.6 2.4-4.9 Magnesium measurement - 07/12/16 06:15 Magnesium measurement 2.2 1.6-2.3 PERIPHERAL SMEAR - SO - 07/12/16 06:15 PERIPHERAL SMEAR - SO WPM Complete blood count (CBC) with automated white blood cell (WBC) differential - 07/14/16 05:55 Blood automated leukocyte count 7.02 4.0 -11.0 Erythrocytes 4.07 4.50-5.50 12.0-16.0;g/dL 13.3 13.5-17.0 Hematocrit 38.20 39.00-50.00 Automated erythrocyte mean corpuscular volume 94 80-100 Mean corpuscular hemoglobin (MCH) determination 32.7 26.0-34.0 Automated erythrocyte mean corpuscular hemoglobin concentration measurement ( mass/volume) 34.8 31.0-37.0 Erythrocyte distribution width 12.5 11.8 -15.6 Automated blood platelet count 182 150- 450 Automated blood platelet mean volume measurement 11.1 6.0-9.5 Automated neutrophil percentage 66 51- 67 Lymphocytes/100 leukocytes 20 20-46 Automated monocyte percentage 11 3-11 Eosinophil count auto 3 0-4 Automated basophil percentage 0 0-2 Automated blood neutrophil count 4.6 Blood lymphocytes count (number/volume) 1.4 Automated blood monocyte count 0.8 Blood absolute eosinophil count 0.2 Basophils 0.0 Prothrombin time (PT) with international normalized ratio (INR) - 07/14/16 05: 55 Prothrombin time (PT) in platelet poor plasma by coagulation assay 21.4 10.0-12.5 INR 1.9 0.8-1.4 Complete blood count (CBC) with automated white blood cell (WBC) differential - 07/19/16 08:55 Blood automated leukocyte count 5.12 4.0 -11.0 Erythrocytes 4.43 4.50-5.50 12.0-16.0;g/dL 14.3 13.5-17.0 Hematocrit 41.40 39.00-50.00 Automated erythrocyte mean corpuscular volume 94 80-100 Mean corpuscular hemoglobin (MCH) determination 32.3 26.0-34.0 Automated erythrocyte mean corpuscular hemoglobin concentration measurement ( mass/volume) 34.5 31.0-37.0 Erythrocyte distribution width 12.8 11.8 -15.6 Automated blood platelet count 232 150- 450 Automated blood platelet mean volume measurement 11.5 6.0-9.5 Automated neutrophil percentage 60 51- 67 Lymphocytes/100 leukocytes 25 20-46 Automated monocyte percentage 10 3-11 Eosinophil count auto 5 0-4 Automated basophil percentage 0 0-2 Automated blood neutrophil count 3.1 Blood lymphocytes count (number/volume) 1.3 Automated blood monocyte count 0.5 Blood absolute eosinophil count 0.3 Basophils 0.0 Prothrombin time (PT) with international normalized ratio (INR) - 08/15/16 12: 52 Prothrombin time (PT) in platelet poor plasma by coagulation assay 36.2 10.0-12.5 INR 3.3 0.8-1.4 UA CULTURE IF INDICATED* - 08/22/16 16:25 COLLECTION METHOD CLEAN CATCH Color of urine by auto Yellow Urine appearance determination Clear Urine pH measurement by automated test strip 5.5 5.0 - 8.0 Specific gravity of urine by automated test strip 1.020 1.005-1.030 Urine protein measurement by test strip (mass/volume) Negative Negative Urine glucose detection by automated test strip Negative Negative Urine erythrocytes count by automated test strip (number/volume) Negative Negative Urine ketones detection by automated test strip Negative Negative Urine nitrite detection by test strip Negative Negative Urine total bilirubin detection by automated test strip Negative Negative Urine urobilinogen measurement by automated test strip (mass/volume) 0.2 0.2-1.0 Urine leukocyte esterase detection by dipstick Negative Negative Encounters ACCT No. Visit Date/Time Discharge Status Pt. Type Provider Facility Loc./Unit Complaint [id number] 07/11/2016 19:57:00 2016 15:10:00 DIS Inpatient JOANNE VERDUZCO, [facility] MED/SURG BILATERAL PE [id number] 06/03/2016 18:56:00 2016 16:45:00 DIS Inpatient BRADFORD VERDUZCO, EL[facility]AB[facility] MED/SURG COMMUNITY ACQUIRED PNEUONIA/HYPOXIA [id number] 06/27/2014 14:37:00 2014 23:59:59 CLS Outpatient WENDY VERDUZCO, [facility] LAB [id number] 12/12/2013 13:30:00 2013 23:59:59 CLS Outpatient WENDY VERDUZCO, [facility] LAB [id number] 11/07/2013 08:38:00 2013 23:59:59 CLS Outpatient Héctor [facility] LAB [id number] 08/22/2016 16:38:00 ACT Outpatient WENDY VERDUZCO, [facility] LAB DROP OFF FROM [facility] [id number] 08/15/2016 12:44:00 ACT Outpatient WENDY VERDUZCO, [facility] LAB [id number] 07/19/2016 09:13:00 ACT Outpatient WENDY VERDUZCO, [facility] LAB DROP OFF THE [facility] [id number] 06/03/2016 15:35:00 ACT Outpatient NEFTALI DONOHUE DO [facility]SP[facility] FROM [facility] TO [id number] 06/30/2015 08:59:00 ACT Outpatient WENDY VERDUZCO, [facility] LAB
[2016-09-21 11:10] LABS: BASOPHILS % (AUTO) 0 % (0-2); EOSINOPHILS # (AUTO) 0.2 10^3uL; EOSINOPHILS % (AUTO) 3 % (0-4); MEAN CORPUSCULAR HEMOGLOBIN 31.2 PG (26.0-34.0); MEAN CORPUSCULAR HGB CONC 32.7 g/dL (31.0-37.0); MEAN CORPUSCULAR VOLUME 95 FL (80-100); MEAN PLATELET VOLUME 10.8 FL (6.0-9.5); MONOCYTES # (AUTO) 0.6 X10^3; MONOCYTES % (AUTO) 11 % (3-11); NEUTROPHILS % (AUTO) 69 % (51-67); PLATELET COUNT 288 10^3uL (150-450)
[2016-09-21 11:21] LABS: ALBUMIN 3.7 g/dL (3.4-5.0); ALKALINE PHOSPHATASE 150 U/L (38-126); ANION GAP 16.5 MEQ/L (3-15); BUN/CREATININE RATIO 14 (10-20)
--- NOTE | 2016-09-21 12:31 | Diagnostic Imaging Report ---
INDICATION: Cough. COMPARISON: 07/11/2016 FINDINGS: Single frontal radiographic view of the chest was obtained and demonstrates normal cardiac silhouette and pulmonary vasculature. There is minimal bibasilar atelectasis. Otherwise, lungs are clear. There is no large effusion or pneumothorax. Bony structures show no gross acute abnormalities. IMPRESSION: 1. Minimal bibasilar atelectasis. Otherwise, no acute cardiopulmonary process. Dictated by: Dictated on workstation # [id number]
--- NOTE | 2016-09-21 13:05 | NUR ---
Patient arrives to room 311 via wheelchair from ED accompanied by Hussain Tsai RN. Alert and oriented X3. Denies pain or SOA at this time. Requires 1 assist to ambulate from weight chair to bed. Oxygen saturation upon arrival 89-91%. 1L of 02 applied per nc. See admission for full assessment.
[2016-09-21 13:16] VITALS: BP 132/72
--- NOTE | 2016-09-21 13:54 | History and Physical (E) ---
History & Physical PCP: Mike Velazco MD CC: Shortness of breath HPI This is a pleasant 75 yo male who presents from [facility] to the ED with acute cough and congestion. This has been ongoing several days. He states the wind blows in his face and hes congested. He reports nasal drainage also. In the ED it was reported that his oxygen sats were around 88%. CXR did not reveal anything acute but due to Hypoxia he has been asked to be admitted for observation. He was here in July for same thing and found to have a PE. He is on coumadin and INR 4.6. PMH * Falls at home * Asthma * Pulmonary Emboli diagnosed in July 2016 * Arthritis * Nocturia * Mild intellectual developmental disability * Seizure disorder * BPH * Anxiety * Peripheral neuropathy * Pedal edema * GERD PSH * Ingrown toenail, right great toe ALLERGIES: PCN HOME MEDICATIONS: Please see list at end of report. FH Biologic parents at young age but unsure from what. Mom of natural causes at 99. Father at 85 of natural causes. 1 sister of cancer, unknown kind. But she was adoptive. Another biological sister lives in [place]. [facility] client. He is his own guardian. Single, no children. No smoking, alcohol, or drug use. Retired ROS CONSTITUTION: Denies weight loss or gain. Denies fever or chills. HEENT: No change in vision or hearing. No sores in mouth, sore throat. CV: No chest pain, palpitations. PULM: Endorses hackey cough, No shortness of breath,No difficulty breathing. GI: No upset stomach, nausea, vomiting, constipation, or diarrhea. No blood in stool. : No dysuria. No blood in urine. MS: No new muscle or joint aches and pains. NEURO: No numbness or tingling. No weakness. INTEG: No rashes, lesions, or sores. ENDO: No heat or cold intolerance. No polydipsia or polyuria. HEME/LYMPH: No easy bruising or bleeding. No swollen glands. PSYCH: No change in mood or behavior. OBJECTIVE: Vitals: Vital Signs Date Time Temp Pulse Resp B/P Pulse Ox O2 Delivery O2 Flow Rate FiO2 09/21/16 13:16 96.6 76 20 91 Nasal cannula 09/21/16 11:23 2 09/21/16 10:53 133/60 GEN: Awake, alert, oriented, NAD HEENT: EOMI, PERRL, moist oral mucosa. Nasal congestion present CV: RRR S1 S2 normal with no murmur LUNGS: CTA B ABD: Soft, NT/ND with normal bowel sounds. EXTR: No C/C/ trace ankle Edema. Normal peripheral pulses. INTEG: No rash. NEURO: No focal motor neuro deficit. Weight: 76.7kg CBC BMP Last 24 Hrs 09/21/16 10:42 Laboratory Results Past 24 Hrs 09/21/16 10:42: Activated Partial Thromboplast Time 52.5, Alanine Aminotransferase (ALT/SGPT) 40 , Albumin 3.7, Albumin/Globulin Ratio 1.121, Alkaline Phosphatase 150, Anion Gap 16.5, Aspartate Amino Transf (AST/SGOT) 29, BUN/Creatinine Ratio 14, Basophils # (Auto) 0.0, Basophils (%) (Auto) 0, Blood Urea Nitrogen 12, Calcium Level 9.0, Calcium/Ionized Calcium Ratio 4.0, Calculated Osmolality 276, Carbon Dioxide Level 31, Chloride Level 101, Creatinine 0.83, Eosinophils # (Auto) 0.2 , Eosinophils (%) (Auto) 3, Estimat Glomerular Filtration Rate 109.6, Estimated GFR (Non- 90.6, Glucose Level 93, Hematocrit 31.20, Hemoglobin 10.2, Lymphocytes # (Auto) 1.0, Lymphocytes (%) (Auto) 17, Mean Corpuscular Hemoglobin 31.2, Mean Corpuscular Hemoglobin Concent 32.7, Mean Corpuscular Volume 95, Mean Platelet Volume 10.8, Monocytes # (Auto) 0.6, Monocytes (%) ( Auto) 11, HL-Duo-Y-Type Natriuretic Peptide 636, Neutrophils # (Auto) 4.0, Neutrophils (%) (Auto) 69, Platelet Count 288, Potassium Level 4.3, Prothromb Time International Ratio 4.6, Prothrombin Time 50.5, Red Blood Count 3.27, Red Cell Distribution Width 11.3, Sodium Level 143, Total Bilirubin 0.3, Total Protein 7.0, Troponin I < 0.012, White Blood Count 5.80 IMAGING Date of Exam: 07/11/16 CT ANGIO CHEST W PROCEDURE: CT angiography of the chest with contrast. TECHNIQUE: Multiple contiguous axial images were obtained through the chest after uneventful bolus administration of intravenous contrast. Reconstructed CTA MIP acquisitions were also performed. INDICATION: Shortness of breath, hypoxia, positive d-dimer. CONTRAST: 95 cc Omnipaque-300 was given intravenously. COMPARISON STUDY: Plain films of the chest from earlier today. FINDINGS: The examination demonstrates a pulmonary emboli occupying approximately 70% of the central right upper lobe bronchus. Pulmonary emboli are present going to the right lower lobe without occlusion. Small pulmonary emboli are seen at the bifurcation of the left main pulmonary artery with small emboli in the lingula. Cardiomegaly is present. There is calcification of the coronary arteries. No pericardial or pleural effusions are present. There is no abnormal adenopathy. The visualized portions of the abdomen appear normal. Some atelectasis or infiltrates are present in the right base. Degenerative changes are present in the spine. IMPRESSION: There are small to moderate bilateral pulmonary emboli, right greater than left. Cardiomegaly is present with mild coronary calcifications. Mild infiltrates are present in the right lung base. There is a moderate sized hiatal hernia. Date of Exam: 07/11/16 ASSESSMENT/PLAN: Hypoxia- reported sats in ED 88% on 6 L/NC- currently on floor 1L/NC- 93% H/O Pulmonary Embolism Seizure disorder Falls at home Asthma Pulmonary Emboli diagnosed in July 2016 Arthritis Nocturia Mild intellectual developmental disability BPH Anxiety Peripheral neuropathy Pedal edema GERD F/V/E- regular diet Code Status- Full Disposition- Obs for now- check respiratory panel- monitor sats Allergies/Home Medications Allergies: Coded Allergies: Penicillins (Verified Allergy, Unknown, 07/11/16) Reported Home Medications Scheduled Azelastine HCl (Azelastine HCl) 2 SPRAYS NS BID (Reported) Clonazepam (Clonazepam) 0.5 MG PO BID Enoxaparin Sodium (Lovenox) 80 MG SC Q12HR Ferrous Sulfate (Feosol) 325 MG PO DAILY (Reported) Fexofenadine HCl (Fexofenadine HCl) 180 MG PO DAILY (Reported) Finasteride (Finasteride) 5 MG PO DAILY (Reported) Fluticasone Propionate (Flonase Allergy Relief) 2 SPRAY NS DAILY (Reported) Furosemide (Lasix) 20 MG PO DAILY Gabapentin (Gabapentin) 100 MG PO HS (Reported) Glucosamine/Chondro Zaidi A (Glucosamine-Chondroit Cplt) 1 TAB PO BID (Reported) Multivits,Ca,Minerals/Iron/Fa (Thera-M) 1 EACH PO DAILY (Reported) Olanzapine (Zyprexa) 5 MG PO HS (Reported) Phenytoin (Dilantin ER) 100 MG PO BID (Reported) Potassium Chloride (Klor-Con M20) 20 MEQ PO DAILY (Reported) Sertraline HCl (Sertraline HCl) 50 MG PO DAILY (Reported) Tamsulosin HCl (Flomax) 0.4 MG PO HS (Reported) Warfarin (Warfarin) 5 MG PO DAILY@1700 Scheduled PRN ([Hydrocodone Bit/Acetaminophen]) 1 TAB PO Q6H PRN PRN PAIN Acetaminophen (Tylenol) 650 MG PO Q6H PRN PRN PAIN Bismuth Subsalicylate (Pepto-Bismol) 262 MG PO NEEDED PRN PRN DYSPEPSIA ( Reported) Dextromethorphan Polistirex (Delsym) 5-10 ML PO q12hr PRN PRN COUGH (Reported) Diclofenac Sodium (Voltaren 1% Gel) 4 GM TOP QID PRN PRN PAIN (Reported) Famotidine (Pepcid) 20 MG PO DAILY PRN PRN HEARTBURN (Reported) Magnesium Hydroxide (Milk of Magnesia 400mg/5ml) 30 ML PO q72hr PRN PRN INDIGESTION (Reported) Peg 400/Hypromellose/Glycerin (Artificial Tears Eye Drops) 1 DROP OP TID PRN PRN DRY EYES (Reported) Pramoxine HCl/Calamine (Caladryl 1%-8% Lotion) 1 APPLIC TP TID PRN PRN ITCHING ( Reported) Tolnaftate (Tinactin) 1 SPRAY TP DAILY PRN PRN ITCHING AND RASH (Reported) Copies to: End of Report . Urvashi Pinon LEAD C DEVELOPER Sep 21, 2016 13:53 Reported) Tolnaftate (Tinactin) 1 SPRAY TP DAILY PRN PRN ITCHING AND RASH (Reported) Copies to: End of Report . Urvashi Pinon LEAD C DEVELOPER Sep 21, 2016 13:53
[2016-09-21] MEDS ORDERED: ACETAMINOPHEN 325 MG TAB (TYLENOL) PO PRN (14:10)
[2016-09-21] MEDS ORDERED: ONDANSETRON 2 MG/ML (Z0FRAN) 2 ML VIAL IV PRN (14:10)
[2016-09-21] MEDS ORDERED: NS FLUSH 3 ML PRN IV (14:15)
[2016-09-21] MEDS ORDERED: NS FLUSH 10 ML PRN IV (14:15)
[2016-09-21] MEDS ORDERED: DICLOFENAC 1% GEL (VOLTAREN) 100 GM TUBE TOP PRN (14:25)
[2016-09-21] MEDS ORDERED: FAMOTIDINE 20 MG (PEPCID) TABLET PO PRN (14:25)
[2016-09-21] MEDS ORDERED: MAGNESIUM HYDROXIDE 80MG/ML (MILK OF MAGNESIA) 30 ML UDC PO PRN (14:25)
[2016-09-21 15:10] VITALS: BP 110/58
[2016-09-21] MEDS ORDERED: WARF2TAB6 PO (17:30)
[2016-09-21] MEDS ORDERED: WARF4TAB7 PO (17:30)
[2016-09-21] MEDS ORDERED: POTA20LI PO (17:30)
[2016-09-21] MEDS ORDERED: ARTIFICIAL TEARS (REFRESH) OPHTHALMIC DROPS OU PRN (17:34)
--- NOTE | 2016-09-21 17:36 | NUR ---
MED REC COMPLETE--current med list obtained from external med history application, MAR from [facility], and previous discharge (07/11/16).
--- NOTE | 2016-09-21 18:24 | NUR ---
Oxygen saturation 94% on of . Denies SOA since admission. Uses call light appropriately and ambulates into bathroom with standby assist. Pleasant and cooperative with all cares. Call light in reach.
--- NOTE | 2016-09-21 18:30 | Progress Note (E) ---
Progress Note Lilian' Note: I saw Mr. Lozada again today late this afternoon.He has no complaints with regard to his hypoxia. He says he feels fine. heart RRR lungs are clear to auscultation abdomen is soft,bs are phsiologic patient is alert and oriented x 3 assessment: hypoxia on room air Plan keep patient on 1 liter via n/c to maintain a saturation of 92--to 93 % oxygen JAGDEEP RIBERA DO Sep 21, 2016 18:30
--- NOTE | 2016-09-21 20:00 | NUR ---
Resting in bed. Is alert and oriented to place and time. Watching TV. Very talkative and at times very informative. No discomforts voiced at this time. Cooperative with cares. Calls for assistance when needed.
[2016-09-21] MEDS ORDERED: OLANZapine 5 MG (ZyPREXA) TAB PO SCH (21:00)
[2016-09-21] MEDS ORDERED: GABAPENTIN 100 MG (NEURONTIN) CAP PO SCH (21:00)
[2016-09-21] MEDS ORDERED: TAMSULOSIN 0.4 MG (FLOMAX) CAP PO SCH (21:00)
--- NOTE | 2016-09-21 21:15 | NUR ---
Calcium Gluconate administered IV as ordered at 60cc an hour.
[2016-09-21] MEDS: clonazePAM 0.5 MG (KlonoPIN) TAB PO SCH (21:35)
[2016-09-21] MEDS: PHENYTOIN ER 100 MG (DILANTIN) CAPSULE PO SCH (21:36)
--- NOTE | 2016-09-21 21:54 | NUR ---
MS 2mg administered for incisional discomfort. Patient starts to hyperventilate and reminded her to breathe slowly, which she did. Rosario in room. Addendum: 09/22/16 at 0004 by Cecilia Mcghee RN Error wrong chart.
--- NOTE | 2016-09-21 22:00 | NUR ---
Ready for sleep. Assisted to bed. Oxygen remains on at 1 lpm. Respirations even and non-labored. Takes medications without difficulty. No discomforts voiced. Call light within reach.
--- NOTE | 2016-09-21 22:55 | NUR ---
Oxy IR administered po for incisional discomfort. Denies nausea. IV patent at 80 cc an hour. Addendum: 09/22/16 at 0005 by Cecilia Mcghee RN Error wrong chart
--- NOTE | 2016-09-22 | NUR ---
Ambulated to bathroom with assistance of two and walker. Voids without difficulty. Very weak. Remains alert and oriented. No discomforts voiced.
[2016-09-22 00:02] VITALS: BP 119/60
--- NOTE | 2016-09-22 06:26 | NUR ---
Patient rested well tonight. Ambulates to the bathroom with assist of two and walker. Patient needs to be reminded to stand up and walk, as he is bent over with walker ahead of him. Urine yellow, strong odor. Oxygen remains on at 1 liter per NC. Patient becomes SOA when ambulating short distances. Is alert. Cooperative with cares. Call light within reach.
--- NOTE | 2016-09-22 07:35 | NUR ---
Patient sleeping in bed upon shift assessment. Arouses easily to verbal stimuli. Alert and oriented X3. Denies pain, SOA at rest, or distress at this time. Does report SOA with exertion and states "I think I just got in a hurry last night and it winded me". 1L of 02 intact. Oxygen saturation 92%. HR RRR. Trace edema noted to BLE. Updated on plan of care for shift. Call light in reach.
[2016-09-22 07:50] VITALS: BP 143/62
[2016-09-22] MEDS ORDERED: FUROSEMIDE 20 MG/2 ML (LASIX) VIAL IV ONE (08:00)
--- NOTE | 2016-09-22 08:00 | NUR ---
Oxygen increased to 2L per nc per Dr. Quintana.
[2016-09-22] MEDS: PHENYTOIN ER 100 MG (DILANTIN) CAPSULE PO SCH (08:20)
[2016-09-22] MEDS: clonazePAM 0.5 MG (KlonoPIN) TAB PO SCH (08:20)
[2016-09-22] MEDS ORDERED: NS FLUSH 3 ML DAILY IV SCH (09:00)
[2016-09-22] MEDS ORDERED: FERROUS SULFATE 325 MG (IRON) TABLET PO SCH (09:00)
[2016-09-22] MEDS ORDERED: LORATADINE (CLARITIN) 10 MG TAB PO SCH (09:00)
[2016-09-22] MEDS ORDERED: POTASSIUM CHLORIDE ER 20 MEQ TABLET PO SCH (09:00)
[2016-09-22] MEDS ORDERED: FLUTICASONE NASAL 50 MCG/SPRAY (FLONASE) 16 GM BTL NS SCH (09:00)
[2016-09-22] MEDS ORDERED: FINASTERIDE (PROSCAR) 5 MG TAB PO SCH (09:00)
[2016-09-22] MEDS ORDERED: SERTRALINE 50 MG (ZOLOFT) TABLET PO SCH (09:00)
[2016-09-22] MEDS ORDERED: FUROSEMIDE 20 MG (LASIX) TAB PO SCH (09:00)
[2016-09-22] MEDS ORDERED: MULTIVITAMIN W/MINERALS (THERAGRAN M) TABLET PO SCH (09:00)
--- NOTE | 2016-09-22 09:08 | NUR ---
NUTRITION ASSESSMENT Level 1 Patient: Devin Lozada Age/Sex: 75/M Date Screened: 09-22-16 Weight: 168.7#/76.7 kg Height: 68 inches Primary Diagnosis: hypoxia Diet Order: regular Relevant labs: N/A Food allergies: N Nutrition Assessment Criteria Age over 80: N Body Mass Index (BMI) under 19: N Admission Screening Indicates Risk? 6 points Moderate/High Risk Diagnosis: N TPN or PPN: N NPO or clear liquid diet: N Serum Glucose <70 or >180: N/A Hgb A1c >6.7: N/A Total: 6 points Risk Screen: __ Patient at low nutritional risk based on available data; reevaluate in 5-7 days __ Patient at moderate nutritional risk based on available data; reevaluate in 3-5 days _X_ Patient at high nutritional risk; complete Nutrition Assessment within 48 hours of admission.
--- NOTE | 2016-09-22 12:26 | NUR ---
NUTRITION ASSESSMENT Level II Patient: Devin Lozada Age/Sex: 75/M Date Assessed: 09-22-16 ASSESSMENT Pertinent History: Patient admitted with hypoxia and screened at high nutritional risk secondary to weight loss. PMHx includes falls at home, asthma, arthritis, mild intellectual disability, seizure disorder, anxiety, peripheral neuropathy, pedal edema and GERD. He lives at [facility]. Pt. denies weight changes, but his documented weight is 181.9# in 2016 and 171# in 2016. He denies GI concerns. Meds/Nutrition: Ferrous Sulfate, KCl, MVI, Lasix, Pepcid Weight: 168.7#/76.7 kg Height: 68 inches Body Mass Index (BMI): 25.7 [place] Body Weight : 154#/70 kg % IBW: 109% GASTROINTESTINAL Appetite: good, eating 100% Diet Order: regular Unintentional loss of >10 lbs. in 3 months: Yes Difficult to chew/swallow: N Diabetes: N Relevant Labs: N/A Calculations for Nutritional Assessment Estimated calorie needs: 25-28 kcals/kg = 1,900-2,120 kcals Estimated protein needs: 1.0-1.3 g/kg = 76-98 g./day DIAGNOSIS 1. Nutrition Diagnosis: Unintentional weight loss related to (unsure--possibly decreased intake vs. increased work of breathing) as evidenced by gradual weight loss since admission in , with total 13# (7.2%) in the past 3 months. NUTRITIONAL INTERVENTION Goal: Patient will receive adequate nutrition to meet his needs. Plan: Will provide regular diet as ordered and monitor intake for adequacy. At recent past admissions, pt. has not had fluid retention or I/O in negative fluid balance so it does not appear that weight loss is related to diuresis or fluid. He has access to food at home, and reports good appetite here. Therefore, recommend his weight be monitored as an outpatient by his PCP to see if the trend continues. MONITORING & EVALUATION _X_ Monitor patients menu selections _X_ Monitor patients food intake per nursing notes __ Monitor NPO/clear liquid days __ Monitor lab values __ Monitor I&O _X_ Other--monitor weight
--- NOTE | 2016-09-22 14:10 | NUR ---
Information faxed to [facility] to obtain home oxygen for Pt. upon discharge today.
--- NOTE | 2016-09-22 14:37 | Discharge Instructions (E) ---
Discharge Instructions Instructions Oxygen 1 L/NC continuous for hypoventilation Continue same medications F/U with your doctor next week for a Pro-time lab value Contact your doctor for any questions or concerns Activity Instructions As Tolerates Doctor's Appointment Appt Dr Carlin next week Discharge Diet: Regular JAGDEEP RIBERA DO Sep 22, 2016 14:37
--- NOTE | 2016-09-22 15:01 | Discharge Summary (E FT) ---
Discharge Summary (E FT) Admit Date Sep 21, 2016 at 12:47 Discharge Date September Admitting Provider Jagdeep Quintana DO Primary Care Provider Mike Velazco MD Attending Provider Jagdeep Quintana DO Consulting Provider Hospital Course Summary Mr Lozada had no complaints today. He was admitted to observation yesterday and he had come through the ED with some hypoxemia.We tried different approaches to elevate his active o2 sat ,but nothing worked. Finally we qualified him for oxygen via nasal cannula at 1 liter/minute. This is a pleasant 75 yo male who presented from [facility] to the ED with acute cough and congestion yesterday.. This has been ongoing several days. He states the wind blows in his face and he's congested. He reports nasal drainage also. In the ED it was reported that his oxygen sats were around 88%. CXR did not reveal anything acute but due to Hypoxia he has been asked to be admitted for observation. He was here in July for same thing and found to have a PE. He is on coumadin and INR 4.6. His D Dimer is a safe 215. PMH * Falls at home * Asthma * Pulmonary Emboli diagnosed in July 2016 * Arthritis * Nocturia * Mild intellectual developmental disability * Seizure disorder * BPH * Anxiety * Peripheral neuropathy * Pedal edema * Assmentment :hypoxia anxiety Pedal edema Plan We are sending him back to his home on portable oxygen for which he has been qualified. It shall be supplied by [employer].He should have his Inr rechecked within the next 7 days. Follow up Instructions Oxygen 1 L/NC continuous for hypoventilation Continue same medications F/U with your doctor next week for a Pro-time lab value Contact your doctor for any questions or concerns Copies to: End of Report . JAGDEEP QUINTANA DO Sep 22, 2016 15:01
[2016-09-22 15:09] VITALS: BP 120/62
--- NOTE | 2016-09-22 15:58 | NUR ---
Discharge order received. IV discontinued with catheter intact. No redness or swelling noted at insertion site. Report called to Mirella lombardi for MCDS. Geovanna (house advisor) notified on time of discharge. Instructions provided to patient with verbal understanding expressed. Awaiting [facility] to bring portable oxygen.
--- NOTE | 2016-09-22 16:42 | NUR ---
Patient dismissed via wheelchair to [facility] transportation van accompanied by EXTERMINATION INSPECTOR. 1L of 02 intact per nc. Denies pain or distress. No further needs.
== END 2016-09-22 16:30 | disposition home or self-care (01) ==
LOC: EDUNIT# 10:53 → ED 10:55 → MED/SURG 12:47
DX: R09.02 Hypoxemia (principal); J45.909 Unspecified asthma, uncomplicated; R60.0 Localized edema; F70 Mild intellectual disabilities; F41.9 Anxiety disorder, unspecified; N40.1 Benign prostatic hyperplasia with lower urinary tract symptoms; R35.1 Nocturia; G62.9 Polyneuropathy, unspecified; G40.909 Epilepsy, unspecified, not intractable, without status epilepticus; Z79.01 Long term (current) use of anticoagulants; Z86.711 Personal history of pulmonary embolism
CPT/HCPCS: 36415; 71010; 80053; 83880; 84484; 85025; 85379; 85610; 85730; 87486; 87581; 87633; 87798; 93005; 94620; 94640; 94761; 96374; 99284; A9270; G0378; J1940; J7613; 93010; 99218; 99285

== ENCOUNTER → 2016-09-21 | Outpatient (CLI) | payer MEDICARE, MEDICAID ==
[~2016-09-21] MED LIST: ACET325T38 PO; ALBU8CC IH; AZEL137S NS; BISM262T16 PO; CEFD300C PO; CELE-63 PO; CELE100C84 PO; CLON0.5T3 PO; DEXT30SU2 PO; DICL100G13 TOP; ENXP80I.8 SC; FAMO-119 PO; FEXO-95 PO; FLUT16SP NSEACH; FLUT9.9S NSEACH; FNST5T PO; FRS325T PO; FRSM20T PO; FURO20TA4 PO; GBPN100C PO; GFN600TCR PO; GLUC-113 PO; GLUC1TAB PO; HYDR-3702 PO; Hydrocodone Bit/Acetaminophen PO; IBP200T PO; KCL20TCR PO; MAGN400O7 PO; MULT1TAB63 PO; NAPR375T71 PO; OLN5T PO; OMEP20CA12 PO; OMEP20TA PO; PEG15DRO5 OP; PHN100C PO; POTA20LI PO; PRAM177L28 TP; PRD20T PO; SERT50TA9 PO; TAMS-8 PO; TAMS0.4C2 PO; TOLN150S2 TP; WARF2TAB6 PO; WARF4TAB7 PO; WRF5T PO; [UNRECOGNIZED DRUG - CODE] PO
== END ==
LOC: EMS 10:25
PROVIDERS: ATTEND Emergency Medicine
DX: R09.02 Hypoxemia (principal); R53.1 Weakness

== ENCOUNTER 2016-10-28 11:15 | Outpatient (RCR) | payer MEDICARE, MEDICAID ==
--- NOTE | 2016-10-11 10:28 | PT/OT/ST INITIAL EVALUATION ---
Department of Health and Human Services Form Approved [facility] Care Financing Administration OMB No. [id number] PLAN OF CARE/ASSESSMENT FOR OUTPATIENT REHABILITATION (Complete for Initial Claims Only) 1. PATIENT'S NAME Devin Lozada 2. ACC # [id number] 3. [facility] [id number] 4. PROVIDER NO. [id number] 5. TYPE: PT 6. PRIOR HOSPITALIZATION NA 7. PRIMARY DX Generalized osteoarthritis 8. SECONDARY DX Weakness, bilateral shoulder pain, bilateral knee pain, low back pain, difficulty walking, bilateral shoulder stiffness, and bilateral knee stiffness. 9. ONSET DATE Patient reports onset of pain was a while ago. 10. REFERRAL DATE 09/30/2016 11. SOC. DATE 10/10/2016 12. TIME OF EVAL 11:29 a.m. to 12:22 p[address]IAN Dr. Mike Velazco 13. CHARGES/UNITS PT evaluation moderate complexity 17542. Therapeutic exercise 63258 2 units 14. G CODES Lower Extremity Functional Scale rates the patient as [id number] 71.3% limited and the goal is H3020-CI less than or equal to 5% limited in order to be able to perform [id number] and ambulate with an assistive device up and down ramps safely. 15. PRIOR LEVEL OF FUNCTION; PERTINENT HISTORY (Prior therapy results, reason for referral.) S: Prior to therapy the patient did consent to today's evaluation and treatment. The patient is a 75-year-old male referred to physical therapy by Dr. Mike Velazco to address functional limitations secondary to generalized osteoarthritis. Description/mechanism of injury: The patient has no specific injury; this is due to progression of osteoarthritis. The patient complains of bilateral shoulder, bilateral ankle, knees, neck, and low back pain. Primary Complaint: The patient's bilateral shoulder, bilateral knees, bilateral ankles, neck and low back all bother him. He states he has the most difficulty getting in and out of a chair and in and out of a car. His right shoulder seems to be stiffer than his left. The patient states that he feels like he has been getting worse lately and all the locations of pain feel about the same, one area is not more painful than another. Occupational and social history: The patient is retired. The patient does live in a alf associated with [facility]. Functional performance/Prior level of function: The patient states that he is not very active currently due to the progression of osteoarthritis. The patient ambulates with his 4-wheeled walker and even with short distances, allows the walker to get too far ahead of him. He is shaky and unsteady even when using the 4-wheeled walker and has difficulty getting from a sitting to a standing position, as well as getting from sitting to supine and supine to sitting. Pain level: The patient does not jed a current pain level on the chart. Difficult for him to give it a number, but he states that it all hurts and it is all the same level of pain from his shoulders, to knees, to ankles, neck and low back. The patient has difficulty describing the exact nature of the pain. Obstacles to delivery of care: The patient has difficulty relaying the nature of the pain verbally. Aggravating factors: Include standing for long periods of time, he states his low back begins to hurt. Relieving factors: Include resting. Diagnostic testing: None noted. Past medical history: Includes osteoarthritis, Multiple Sclerosis which he states he feels is getting worse, seizures and epilepsy, which is controlled. He states he has not had a seizure in a long time since he is on medication. Past surgical history: Includes having a neck surgery, which he states 2 plates were put in his neck. Current medications: Include Tylenol. In addition a complete list is in the chart, which includes multivitamin OTC, Dilantin, Flomax, Lasix, potassium, Proscar, Omeprazole, Feosol, Celebrex, glucosamine-chondroitin, gabapentin, Zyprexa, Klonopin, Zoloft, Flonase nasal spray, and DAIANA hose. Leisure activities: Include watching TV and watching movies, reading books and magazines. Activity level: Listed as very little due to arthritis. Personal health rating: Listed as fair. Patient's Goal: The patient's goal for physical therapy is to stand longer without hurting so bad and to walk more often. 16. INITIAL ASSESSMENT/SAFETY PRECAUTIONS/MEDICAL COMPLICATIONS (Level of function at start of care. Be specific, use objective measures, list problems.) O: APPEARANCE, OBSERVATION AND GAIT: The patient enters the clinic using a 4-wheeled walker. The patient has an unsteady gait and forward flexed posture of his trunk. When walking, even short distances the patient is unsteady and he even states that he is shaky when walking. The patient was educated in not allowing the walker to get too far in front of him. He states he has been using the 4-wheeled walker for the last 3 to 4 years. The patient is right handed. The patient states he lives in a alf. He is retired. In the past he has been employed through [employer]. The patient states that currently he needs help with cooking because it requires too much standing for long periods and getting in and out of the car. The patient reports that he also has a tilt chair at home and has grab bars in the bathroom to get off the toilet. The patient states he does have to go up and down a slight ramp and he does feel unsteady and shaky with that. The patient demonstrates a rounded posture, both standing and sitting. He has difficult getting from a seated to a supine position and supine to seated position. PALPATION: No significant tenderness to palpation is noted. SPECIAL TESTS: None. RANGE OF MOTION/FLEXIBILITY: Grossly bilateral shoulder flexion 120 degrees. Bilateral shoulder abduction 120 degrees. Bilateral external rotation and internal rotation is stiff and has difficulty with external rotation reaching down to his back and internal rotation reaching behind him. The patient has functional knee extension with a long arc quad bilaterally, but in a supine position is lacking significant amounts of knee extension possibly due to back pain when supine and functional range of motion into knee flexion. STRENGTH: Manual muscle testing of the hips flexion bilateral 3+/5, abduction bilateral 3+/5. Extension not formally tested, but the patient demonstrates glute weakness with ambulation with a forward flexed posture and difficulty with sit to stand. Knee flexion bilateral 3+/5, knee extension bilateral 4-/5, dorsiflexion bilateral 3/5, plantar flexion left 3-/5, and right 3/5. Shoulder manual muscle testing grossly 3-/5 through observation flexion, abduction, external rotation, internal rotation. TODAY'S TREATMENT: Included the initial PT evaluation followed by therapeutic exercise and home exercise program. 17. INITIAL POC: (Specify procedures, modalities, short and alf goals) A: This patient presents with the diagnosis of generalized osteoarthritis affecting neck, back, bilateral shoulders, bilateral knees, and bilateral ankles. The patient would benefit from physical therapy in order to strengthen lower extremities to improve balance strategies to decrease risk of falling, as well as to improve strength for ease of ambulating with proper use of 4-wheeled walker, as well as to ease bed mobility and transfers independently and to decrease risk of falling and to restore motor recruitment for ease of activity as well. PROGNOSIS: The patient has a fair prognosis for increased overall functional capacity with regular therapy attendance and compliance with prescribed home exercise program. CONTRAINDICATIONS, PRECAUTIONS AND OBSTACLES TO DELIVERY OF CARE: The patient does have difficulty verbally relaying and describing his pain. INFORMED CONSENT: The prognosis and goals were discussed with this patient, as well as the expected outcomes and possible risks. The patient agreed to undergo PT evaluation and further treatment. CUSTODIAL GOALS: 1. The patient is to have a decrease in pain of bilateral shoulders, neck, and low back, knees and ankles to less than or equal to 2/10 in 6 weeks in order to ambulate and get up from a chair with minimal deviation. 2. The patient is to have an increase in manual muscle testing of bilateral shoulders and hips, knees and ankles to 4/5 in 6 weeks in order to be able to perform [id number] safely and to improve safety in the bathroom and walking on sidewalks. 3. The patient is to be independent with a progressive home exercise program. P: Plan to treat this patient 1 to 2 times a week for 6 weeks. Treatment to include modalities for pain and inflammation, manual therapy interventions, therapeutic exercise, active and passive range of motion, gait training, balance training, neural reeducation, and patient education and prescription of progressive home exercise program as tolerable. 18. FREQUENCY 1 to 2 times per week 19. DURATION 6 weeks 20. FUNCTIONAL LEVEL (End of claim period) 21. PHYSICIAN SIGNATURE ? ON FILE OR ENTER HERE: 22. DATE: I certify the need for these services furnished under this plan of care and if for partial hospitalization. 23. CERTIFICATION FROM THROUGH [facility][id number]
[~2016-10-28 11:15] MED LIST changes: +POTA20LI PO; +WARF2TAB6 PO; +WARF4TAB7 PO
== END 2016-10-31 10:47 | disposition home or self-care (01) ==
LOC: PT 11:15
PROVIDERS: ATTEND Family Medicine
DX: M15.0 Primary generalized (osteo)arthritis (principal); M25.512 Pain in left shoulder; M25.511 Pain in right shoulder; M25.562 Pain in left knee; M25.561 Pain in right knee; M54.5 Low back pain; R26.2 Difficulty in walking, not elsewhere classified; M25.612 Stiffness of left shoulder, not elsewhere classified; M25.611 Stiffness of right shoulder, not elsewhere classified; M25.662 Stiffness of left knee, not elsewhere classified; M25.661 Stiffness of right knee, not elsewhere classified
CPT/HCPCS: 97110; 97162; G8978; G8979